=== PATIENT | male | born 1935 | race Caucasian/White ===

== ENCOUNTER 2016-07-04 22:46 | Inpatient (IN) | payer MEDICARE, OTHER ==
--- NOTE | 2016-07-04 23:22 | ED ---
General Adult HPI - General Chief complaint: Shortness of Breath Stated complaint: DERECK Time Seen by Provider: 07/04/16 22:48 Source: patient, RN notes reviewed Mode of arrival: EMS Limitations: no limitations - History of Present Illness Initial comments: Patient is a pleasant 81-year-old male presenting to the emergency department with difficulty in breathing. Patient was at [facility] in the observation unit. They did discuss case with Dr. Dominguez and decision was made to come to the emergency department. Patient was reportedly not admitted. Patient admits to having difficulty breathing for several days. Symptoms are similar to previous COPD. Computed tomography scan there had concern for mass. Patient has previously seen Dr. Trevizo. - Related Data Home Medications Medication Instructions Recorded Confirmed Budesonide/Formoterol Fumarate 2 puff INHALATION BID 07/04/16 07/04/16 [Symbicort 160-4.5 Mcg Inhaler] Ipratropium/Albuterol Sulfate 1 puff INHALATION QID 07/04/16 07/04/16 [Combivent Respimat Inhaler] [id number] 600/30MG [Mucinex 1 each PO Q12HR 07/04/16 07/04/16 Dm] Allergies Allergy/AdvReac Type Severity Reaction Status Date / Time ciprofloxacin Allergy Itching Verified 07/04/16 23:11 Review of Systems ROS Statement: Those systems with pertinent positive or pertinent negative responses have been documented in the HPI. ROS Other: All systems not noted in ROS Statement are negative. Constitutional: Denies: fever Eyes: Denies: eye pain ENT: Denies: ear pain Respiratory: Reports: cough, dyspnea Cardiovascular: Denies: chest pain Endocrine: Reports: fatigue Gastrointestinal: Denies: abdominal pain Genitourinary: Denies: urgency Skin: Denies: rash Neurological: Denies: headache Past Medical History Past Medical History: COPD History of Any Multi-Drug Resistant Organisms: None Reported Past Surgical History: No Surgical Hx Reported Smoking Status: Former smoker Past Alcohol Use History: None Reported Past Drug Use History: None Reported General Exam Limitations: no limitations General appearance: alert, in no apparent distress Head exam: Present: atraumatic Eye exam: Present: normal appearance, PERRL ENT exam: Present: normal oropharynx Neck exam: Present: normal inspection Respiratory exam: Present: wheezes Cardiovascular Exam: Present: regular rate, normal rhythm GI/Abdominal exam: Present: soft. Absent: tenderness Extremities exam: Present: normal inspection. Absent: pedal edema, calf tenderness Neurological exam: Present: alert Psychiatric exam: Present: normal affect, normal mood Skin exam: Absent: rash Course Vital Signs 07/04/16 23:05 Temperature 97.6 F Pulse Rate 66 Respiratory 20 Rate Blood Pressure 180/80 O2 Sat by Pulse 99 Oximetry Medical Decision Making - Medical Decision Making Patient updated on plan. Case was discussed with Dr. Dominguez, who will admit. He was already aware of this patient. Disposition Clinical Impression: Acute exacerbation of chronic obstructive airways disease, Lung mass Disposition: ADMITTED IP TO THIS HOSP Time of Disposition: 23:35
[2016-07-05] MEDS: methylPREDNISolone SOD SUCCI 125 MG/2 ML VIAL IV SCH ×4 (01:47→17:34)
[2016-07-05] MEDS: IPRATROPIUM-ALBUTEROL 3 ML NEB INHALATION PRN (01:50)
[2016-07-05] MEDS: IPRATROPIUM-ALBUTEROL 3 ML NEB INHALATION SCH ×3 (07:32→14:47)
[2016-07-05 07:44] LABS: Glucose,Whole Blood 119 mg/dL (75-99)
--- NOTE | 2016-07-05 11:10 | XR ---
EXAMINATION TYPE: XR chest 2V DATE OF EXAM: 07/05/2016 10:53 AM COMPARISON: NONE HISTORY: Shortness of breath TECHNIQUE: Frontal and lateral views of the chest are obtained. FINDINGS: Scattered senescent parenchymal changes noted. Hyperinflation compatible with COPD. Underlying emphys ematous changes noted. Granuloma right upper lobe. No evidence for infiltrate. No evidence for atelectasis. Heart size is not enlarged. Mediastinal structures are stable and grossly unremarkable. No evidence for hilar prominence. Degenerative changes dorsal spine. IMPRESSION: 1. No evidence for acute pulmonary disease.
[2016-07-05 11:58] LABS: Glucose,Whole Blood 128 mg/dL (75-99)
[2016-07-05] MEDS ORDERED: TEMAZEPAM 15 MG CAP PO PRN (12:19)
[2016-07-05] MEDS ORDERED: ALPRAZolam 0.25 MG TAB PO PRN (12:19)
[2016-07-05] MEDS ORDERED: IPRATROPIUM-ALBUTEROL 3 ML NEB INHALATION PRN (12:30)
[2016-07-05] MEDS: INSULIN LISPRO (humaLOG) 300 UNIT/3 ML VIAL SQ SCH ×2 (12:32→17:34)
[2016-07-05] MEDS: TAMSULOSIN 0.4 MG CAP.ER.24H PO SCH (12:41)
[2016-07-05] MEDS: guaiFENesin-DM 600/30MG 1 EACH TAB.ER.12H PO SCH (12:41)
[2016-07-05 14:31] LABS: ALT 23 U/L (21-72); AST 36 U/L (17-59); Alkaline Phosphatase 56 U/L (38-126); Anion Gap 7 mmol/L; Blood Urea Nitrogen 26 mg/dL (9-20); Calcium 9.4 mg/dL (8.4-10.2); Carbon Dioxide 28 mmol/L (22-30); Chloride 102 mmol/L (98-107); Glucose 134 mg/dL (74-99); Non-African American GFR(MDRD) 58 (>60 ml/min/1.73 sqM); Potassium 4.5 mmol/L (3.5-5.1); Sodium 137 mmol/L (137-145); Total Bilirubin 0.3 mg/dL (0.2-1.3)
--- NOTE | 2016-07-05 17:20 | CONS ---
DATE OF CONSULTATION: This is a very pleasant 81-year-old gentleman who I have seen in the past. He has a history of Gold stage III/IV COPD. He apparently was at [facility] for 3 days for shortness of breath and COPD exacerbation. He states he was not really improving there and for that reason he was shipped down from [place] to our ER where he was seen here in the ER. His complaints include chest congestion, shortness of breath, coughing wheezing. Just feels like he has a lot of mucus in his lungs. His other major issue is constipation. He apparently had a CAT scan or something which showed a possible mass. I do not know that I have any x-rays or films here. Home medications include Symbicort, DuoNeb, Mucinex. ALLERGIES: CIPROFLOXACIN. Medical history includes primarily COPD. I believe he is stage III/IV COPD. Surgical history is none. SOCIAL HISTORY: Positive for previous heavy tobacco use. Denies alcohol or illicit drug use. Family history and occupational history are noncontributory. REVIEW OF SYSTEMS: CONSTITUTIONAL: Negative. NEUROLOGICAL: Negative. HEENT: Negative. CARDIOVASCULAR: Negative. PULMONARY: Shortness breath, chest tightness, wheezing, cough, chest congestion, minimal phlegm production. GI/: Negative. RHEUMATOLOGICAL/IMMUNOLOGIC: Negative. ENDOCRINOLOGIC: Negative. DERMATOLOGIC: Negative. CURRENT VITAL SIGNS: Temperature 97.9, heart rate 78, respiratory rate 22, blood pressure 146/80, at 5 liter saturation 93%. Appears in no acute distress. HEENT examination is grossly unremarkable. Mucous membranes are moist. No oral lesions. Neck is supple. Full range of motion. No adenopathy or thyromegaly. Cardiovascular examination reveals regular rhythm and rate. S1, S2 normal. No S3, S4 or murmur. Lungs reveal diffuse bilateral expiratory wheezes. Breath sounds are diminished. Slight prolongation. No crackles. Abdomen is soft. Bowel sounds are heard. No masses or tenderness. Extremities are intact. No cyanosis, clubbing or edema. Skin is without rash. Neurological examination is nonfocal. Labs are reviewed. The only lab that I have here is a glucose of 119. There are no x-rays here. There is some note and Dr. Martinez' note said that there is apparently a lung mass. I am not aware of that. Medications are reviewed. He is on currently only on updrafts with DuoNeb and Solu-Medrol. Will add an antibiotic and also had Perforomist and Pulmicort. ASSESSMENT: 1. Chronic obstructive pulmonary disease exacerbation probably complicated by mild purulent tracheobronchitis. 2. Apparently lung mass. 3. 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 4. Previous history of heavy tobacco use. PLAN: Please see my orders. Again, the patient will likely have some antibiotic added to his regimen. Will get a chest x-ray. The patient will also have some Perforomist and Pulmicort added to his regimen. We will see if we can retrieve the CAT scan done at [place]. Additional recommendations and suggestions are forthcoming. Prognosis is guarded.
[2016-07-05 17:24] LABS: Glucose,Whole Blood 115 mg/dL (75-99)
[2016-07-05] MEDS: GABAPENTIN 400 MG CAP PO SCH (17:34)
[2016-07-05] MEDS ORDERED: methylPREDNISolone SOD SUCCI 125 MG/2 ML VIAL ONE (21:00)
[2016-07-05] MEDS ORDERED: HEPARIN SODIUM,PORCINE 5,000 UNIT/ML 1 ML VIAL ONE (21:00)
[2016-07-05] MEDS ORDERED: traZODone HCL 50 MG TAB ONE (21:00)
[2016-07-05] MEDS ORDERED: guaiFENesin-DM 600/30MG 1 EACH TAB.ER.12H PO ONE (21:00)
[2016-07-05] MEDS ORDERED: FORMOTEROL FUMARATE 20 MCG/2 ML NEBU INHALATION ONE (21:00)
[2016-07-05] MEDS ORDERED: SULFAMETHOX-TMP 800-160MG 1 EACH TAB ONE (21:00)
[2016-07-05] MEDS ORDERED: FAMOTIDINE 20 MG TAB ONE (21:00)
[2016-07-05] MEDS ORDERED: GABAPENTIN 400 MG CAP ONE (21:00)
[2016-07-05] MEDS ORDERED: IPRATROPIUM-ALBUTEROL 3 ML NEB ONE (21:00)
[2016-07-05] MEDS ORDERED: BUDESONIDE 1 MG/2 ML NEBU INHALATION ONE (21:00)
[2016-07-05] MEDS ORDERED: PROPRANOLOL 20 MG TAB ONE (21:00)
[2016-07-05 23:06] LABS: Glucose,Whole Blood 125 mg/dL (75-99)
[2016-07-06] MEDS: FORMOTEROL FUMARATE 20 MCG/2 ML NEBU INHALATION SCH ×3 (00:25→19:44)
[2016-07-06] MEDS: BUDESONIDE 1 MG/2 ML NEBU INHALATION SCH ×3 (00:25→19:44)
[2016-07-06] MEDS: IPRATROPIUM-ALBUTEROL 3 ML NEB INHALATION SCH ×5 (00:25→19:43)
[2016-07-06] MEDS: LEVOTHYROXINE 50 MCG TAB PO SCH (06:38)
[2016-07-06 07:20] LABS: Glucose,Whole Blood 124 mg/dL (75-99)
[2016-07-06 08:50] LABS: Basophils % (A) 0 %; CHCM 31.5; Eosinophils % (A) 0 %; HCT 32.1 % (39.0-53.0); HDW 2.28; HGB 10.3 gm/dL (13.0-17.5); Luc % (Auto) 1; Lymphocytes # (A) 0.4 k/uL (1.0-4.8); Lymphocytes % (A) 4 %; MCH 30.6 pg (25.0-35.0); MCHC 32.1 g/dL (31.0-37.0); MCV 95.5 fL (80.0-100.0); Mean Platelet Volume 7.3; Monocytes # (A) 0.4 k/uL (0-1.0); Monocytes % (A) 4 %; Neutrophils # (A) 9.1 k/uL (1.3-7.7); Neutrophils % (A) 91 %; RBC 3.36 m/uL (4.30-5.90); RDW 12.3 % (11.5-15.5); WBC (Perox) 10.53
[2016-07-06 09:01] LABS: Anion Gap 6 mmol/L; Blood Urea Nitrogen 29 mg/dL (9-20); Calcium 8.8 mg/dL (8.4-10.2); Carbon Dioxide 29 mmol/L (22-30); Chloride 102 mmol/L (98-107); Glucose 112 mg/dL (74-99); Non-African American GFR(MDRD) 58 (>60 ml/min/1.73 sqM); Potassium 4.3 mmol/L (3.5-5.1); Sodium 137 mmol/L (137-145)
[2016-07-06] MEDS: INSULIN LISPRO (humaLOG) 300 UNIT/3 ML VIAL SQ SCH ×5 (09:18→22:38)
[2016-07-06] MEDS: FLUoxetine HCL 20 MG CAP PO SCH (09:19)
[2016-07-06] MEDS: HEPARIN SODIUM,PORCINE 5,000 UNIT/ML 1 ML VIAL SQ SCH ×3 (09:19→20:54)
[2016-07-06] MEDS: TAMSULOSIN 0.4 MG CAP.ER.24H PO SCH (09:19)
[2016-07-06] MEDS: PROPRANOLOL 20 MG TAB PO SCH ×3 (09:19→20:52)
[2016-07-06] MEDS: PANTOPRAZOLE 40 MG TABLET PO SCH (09:19)
[2016-07-06] MEDS: FAMOTIDINE 20 MG TAB PO SCH ×3 (09:20→20:53)
[2016-07-06] MEDS: guaiFENesin-DM 600/30MG 1 EACH TAB.ER.12H PO SCH ×3 (09:20→20:52)
[2016-07-06] MEDS: SULFAMETHOX-TMP 800-160MG 1 EACH TAB PO SCH ×3 (09:21→20:54)
[2016-07-06] MEDS: GABAPENTIN 400 MG CAP PO SCH ×4 (09:22→20:54)
[2016-07-06] MEDS: methylPREDNISolone SOD SUCCI 125 MG/2 ML VIAL IV SCH ×4 (09:23→18:27)
[2016-07-06] MEDS: MULTIVITAMINS, THERA 1 EACH TAB PO SCH (11:02)
[2016-07-06 11:23] LABS: Hemoglobin A1C 5.4 % (4.2-6.1)
[2016-07-06 11:51] LABS: Glucose,Whole Blood 99 mg/dL (75-99)
[2016-07-06] MEDS ORDERED: MULTIVITAMINS, THERA 1 EACH TAB PO SCH (12:00)
[2016-07-06] MEDS: SENNOSIDES 8.6 MG TAB PO PRN (12:28)
--- NOTE | 2016-07-06 13:14 | HP ---
DATE OF ADMISSION: CHIEF COMPLAINT: Shortness of breath. HISTORY OF PRESENT ILLNESS: This 81-year-old gentleman with a past medical history of multiple medical problems including COPD, GERD, hypertension, history of back pain, chronic constipation, anxiety not otherwise specified being followed by Dr. Ng in the outpatient presented with complaints of COPD, pneumonia suspected, treated with antibiotics. The CAT scan of the chest showed possibly. The patient also complains of significant wheezing and difficulty in breathing and because of that the patient was transferred to [facility] and admitted for evaluation and treatment. No history of any fever, rigors or chills. No history of headache or loss of consciousness. PAST MEDICAL HISTORY: COPD, GERD, hypertension, hypothyroidism, history of back pain, chronic constipation, anxiety and depression. MEDICATIONS PRIOR TO ADMISSION: 1. Multivitamin 1 p.o. daily. 2. Flonase nasal spray 1 daily p.r.n. 3. Synthroid 50 mcg p.o. daily. 4. Neurontin 400 mg p.o. t.i.d. 5. Lamont 5 mg p.o. t.i.d. p.r.n. 6. Senokot 8.6 mg q.h.s. p.r.n. 7. Vitamin D3 2000 daily. 8. Trazodone 150 mg q.h.s. 9. Mucinex 1 tablet p.o. b.i.d. 10. Flomax 0.4 daily. 11. Zantac 150 mg p.o. b.i.d. 13. Synthroid 50 mcg p.o. daily. 14. Combivent 1 puff q.i.d. p.r.n. 15. DuoNeb q.i.d. 16. Neurontin 400 mg p.o. t.i.d. 17. Prozac 20 mg p.o. daily. 18. Symbicort 2 puffs b.i.d. 19. Tylenol 650 q.4 p.r.n. ALLERGIES: CIPROFLOXACIN. FAMILY HISTORY: History of cancer in the family. SOCIAL HISTORY: Previous history of smoking. No history of current smoking or alcohol intake. REVIEW OF SYSTEMS: ENT: No diminishing hearing or diminished vision. CARDIOVASCULAR: No angina or palpitations. RESPIRATORY: Mentioned earlier. GI: No nausea. : No dysuria. NERVOUS: No numbness or weakness. ALLERGY/IMMUNOLOGY: No asthma or hayfever. HEMATOLOGY/ONCOLOGY: Negative. ENDOCRINE: No history of diabetes or hypothyroidism. SKIN: Negative. CONSTITUTIONAL: As mentioned earlier. PHYSICAL EXAMINATION: GENERAL: The patient is alert and oriented times three. VITAL SIGNS: Pulse is 84, blood pressure 140/82, respirations 20, temperature 97.1, pulse ox 97% on 5 liters. HEENT: Conjunctivae normal. Oral mucosa moist. Accessory muscles of respiration active. The patient is significantly short of breath at rest. NECK: No lymph node enlarged or thyroid enlargement. HEART: S1 and S2, muffled. Ejection systolic murmur. RESPIRATORY: Breath sounds diminished at the bases. Scattered rhonchi and expiratory wheezing and crackles. ABDOMEN: Soft, no tenderness. EXTREMITIES: Legs no edema, no swelling. NERVOUS: Higher functions as mentioned. Moves all four limbs No focal deficits. LABS: WBC not available. Sodium 137 and glucose 128. ASSESSMENT: 1. Chronic obstructive pulmonary disease acute exacerbation with acute tracheobronchitis and bronchopneumonia with acute hypoxic respiratory failure present on admission. 2. Rule out mass lesion. 3. Increased random blood sugar. 4. History of chronic obstructive pulmonary disease. 5. History of gastroesophageal reflux disease. 6. Hypertension. 7. Hypothyroidism. 8. Back pain. 9. Degenerative joint disease. 10. History of chronic constipation. 11. History of urinary tract infection. 12. History of anxiety and depression, not otherwise specified. 13. Remote history of nicotine dependence. 14. Full code. Recommendations and discussion: In this 81-year-old gentleman who presented with multiple complex medical issues, we will monitor the patient closely. Continue the current medications, optimize the bronchodilator treatment and antibiotics. Otherwise steroids, monitor blood sugars closely, DVT prophylaxis. Guarded prognosis. Further recommendations to follow. See orders for further details. NIECY NG MD [facility]
[2016-07-06] MEDS ORDERED: FUROSEMIDE 10 MG/ML 2 ML VIAL IV ONE (16:00)
[2016-07-06] MEDS: CHOLECALCIFEROL 1,000 UNIT TAB PO SCH (17:07)
[2016-07-06] MEDS: DOCUSATE 100 MG CAP PO SCH (17:08)
[2016-07-06] MEDS: ALPRAZolam 0.25 MG TAB PO SCH ×2 (17:12→20:58)
[2016-07-06 17:21] LABS: Glucose,Whole Blood 126 mg/dL (75-99)
[2016-07-06] MEDS: traZODone HCL 50 MG TAB PO SCH ×2 (18:27→20:53)
[2016-07-06 22:14] LABS: Glucose,Whole Blood 143 mg/dL (75-99)
--- NOTE | 2016-07-06 22:59 | PN ---
This is a pleasant 81-year-old gentleman in the past. He has a history of stage III/IV COPD. He apparently was at [facility] for 3 days for shortness of breath and COPD exacerbation. He was transferred over here. Feeling a bit better today. Still with shortness of breath. Coughing, chest congestion. Coughing up some phlegm. His was concerned about his bowels. There is also concerned about his anxiety. He has a history of chronic obstructive pulmonary disease. Other than that, really has no other major medical problems. Current vital signs include a temperature which is 97.4, heart rate 78, respiratory rate 18, blood pressure 141/68, mean 92, 5 liters saturation 96%. Appears in no acute distress. HEENT examination is grossly unremarkable. Mucous membranes are moist. No oral lesions. Neck is supple. Full range of motion. No adenopathy or thyromegaly. Neck veins are flat. Cardiovascular examination reveals regular rhythm and rate. S1, S2 normal. No S3, S4 or murmur. Lungs reveal coarse inspiratory and expiratory rhonchi. Breath sounds are diminished. There is prolongation. The patient wheezes on forced maneuver. ABDOMEN: Soft. Bowel sounds are heard. No masses or tenderness. EXTREMITIES: Intact. No edema. Skin is without rash. NEUROLOGICAL: Nonfocal. Labs are reviewed. White count 10, hemoglobin 10.3, hematocrit 32.1, platelet count 190,000. Sodium, potassium and chloride, and CO2 normal. BUN and creatinine were 29 and 1.21. Microbiology is negative. A chest x-ray done on 07/05 shows no acute pulmonary disease. There are changes of COPD. Medications were adjusted yesterday. ASSESSMENT: 1. Chronic obstructive pulmonary disease exacerbation complicated by purulent tracheobronchitis. 2. 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 3. Previous history of heavy tobacco use. 4. Anxiety. 5. Constipation. 6. No evidence of lung mass based on the current chest x-ray. PLAN: Will add some Xanax to his regimen. He will continue on the Perforomist, Pulmicort and Duoneb. He will continue on Solu-Medrol and antibiotics. No additional recommendations are made.
[2016-07-06] MEDS: IPRATROPIUM-ALBUTEROL 3 ML NEB INHALATION PRN (23:19)
[2016-07-07] MEDS: methylPREDNISolone SOD SUCCI 125 MG/2 ML VIAL IV SCH ×4 (00:06→17:46)
[2016-07-07] MEDS: LEVOTHYROXINE 50 MCG TAB PO SCH (06:45)
[2016-07-07 07:25] LABS: Glucose,Whole Blood 126 mg/dL (75-99)
[2016-07-07] MEDS: INSULIN LISPRO (humaLOG) 300 UNIT/3 ML VIAL SQ SCH ×4 (07:32→22:11)
[2016-07-07] MEDS: FAMOTIDINE 20 MG TAB PO SCH (07:59)
[2016-07-07] MEDS: guaiFENesin-DM 600/30MG 1 EACH TAB.ER.12H PO SCH ×2 (07:59→22:10)
[2016-07-07] MEDS: TAMSULOSIN 0.4 MG CAP.ER.24H PO SCH (07:59)
[2016-07-07] MEDS: ALPRAZolam 0.25 MG TAB PO SCH ×4 (07:59→22:17)
[2016-07-07] MEDS: PROPRANOLOL 20 MG TAB PO SCH ×2 (07:59→22:12)
[2016-07-07] MEDS: SULFAMETHOX-TMP 800-160MG 1 EACH TAB PO SCH (07:59)
[2016-07-07] MEDS: GABAPENTIN 400 MG CAP PO SCH ×3 (08:00→22:13)
[2016-07-07] MEDS: HEPARIN SODIUM,PORCINE 5,000 UNIT/ML 1 ML VIAL SQ SCH ×2 (08:00→22:11)
[2016-07-07] MEDS: DOCUSATE 100 MG CAP PO SCH (08:00)
[2016-07-07] MEDS: PANTOPRAZOLE 40 MG TABLET PO SCH (08:00)
[2016-07-07] MEDS: FLUoxetine HCL 20 MG CAP PO SCH (08:00)
[2016-07-07] MEDS: IPRATROPIUM-ALBUTEROL 3 ML NEB INHALATION SCH ×4 (09:25→20:10)
[2016-07-07] MEDS: BUDESONIDE 1 MG/2 ML NEBU INHALATION SCH ×2 (09:25→20:10)
[2016-07-07] MEDS: FORMOTEROL FUMARATE 20 MCG/2 ML NEBU INHALATION SCH ×2 (09:25→20:10)
[2016-07-07 09:35] LABS: Basophils % (A) 0 %; CH 30.1; CHCM 31.1; Eosinophils % (A) 0 %; HCT 35.7 % (39.0-53.0); HDW 2.28; HGB 11.1 gm/dL (13.0-17.5); Hypochromasia Slight; Luc # (Auto) 0.04; Luc % (Auto) 0; Lymphocytes # (A) 0.4 k/uL (1.0-4.8); Lymphocytes % (A) 4 %; MCH 30.2 pg (25.0-35.0); MCV 97.4 fL (80.0-100.0); Mean Platelet Volume 7.3; Monocytes # (A) 0.3 k/uL (0-1.0); Monocytes % (A) 3 %; Neutrophils # (A) 8.6 k/uL (1.3-7.7); Neutrophils % (A) 92 %; RBC 3.67 m/uL (4.30-5.90); RDW 12.4 % (11.5-15.5); WBC 9.3 k/uL (3.8-10.6); WBC (Perox) 9.64
[2016-07-07] MEDS: SENNOSIDES 8.6 MG TAB PO PRN (09:50)
[2016-07-07] MEDS: CHOLECALCIFEROL 1,000 UNIT TAB PO SCH (09:50)
[2016-07-07 10:02] LABS: Potassium 4.2 mmol/L (3.5-5.1)
[2016-07-07 12:02] LABS: Glucose,Whole Blood 127 mg/dL (75-99)
--- NOTE | 2016-07-07 12:27 | PN ---
DATE OF SERVICE: 07/06/2016 This 81-year-old gentleman who was admitted with COPD acute exacerbation as well as acute hypoxic respiratory failure, also suspected of mass lesion elsewhere. No chest pain or palpitations. No fever. On exam, alert, oriented x3. Pulse 74, blood pressure 140/60, respirations 18, temperature 97.6, pulse ox 97% on 5 L. HEENT: Conjunctivae normal. NECK: No JVD. CARDIOVASCULAR: S1 and S2 muffled. LUNGS: Breath sounds diminished at the bases. Few scattered rhonchi and crackles. ABDOMEN: Soft. EXTREMITIES: Legs nontender. EXTREMITIES: No focal deficits. LABS: WBC 10, hemoglobin 10.3, glucose 112. ASSESSMENT: 1. Chronic obstructive pulmonary disease acute exacerbation with acute purulent tracheobronchitis and bronchopneumonia with acute hypoxic respiratory failure, present on admission. 2. Rule out mass lesion and malignancy. 3. Increased random blood sugar. 4. History of chronic obstructive pulmonary disease. 5. History of gastroesophageal reflux disease. 6. Hypertension, essential. 7. History of hypothyroidism. 8. History of back pain, degenerative joint disease. 9. History of chronic constipation. 10. History of urinary tract infections. 11. History of anxiety/depression, not otherwise specified. 12. Remote history of nicotine dependence. 13. FULL CODE. RECOMMENDATIONS: Recommend to continue current medications, continue symptomatic treatment. Otherwise bronchodilators, steroids, antibiotics. Also recommend a repeat CT scan for evaluation. Closely follow with pulmonary. Further recommendations to follow. The patient is still extremely short of breath.
[2016-07-07] MEDS: MULTIVITAMINS, THERA 1 EACH TAB PO SCH (14:02)
--- NOTE | 2016-07-07 17:06 | P.PN ---
Subjective 81-year-old male patient with advanced COPD was coming in for an acute COPD exacerbation. The patient had undergone a CAT scan of the chest at [facility] and it shows a masslike consolidation in the right midlung area is probably an area of infiltrate than a true tumor. In any rate, the patient advanced lung disease and he will not be a candidate for any further diagnostic or therapeutic measures even if diagnosis of cancer was established. The patient is in for an acute COPD exacerbation. He is a congested cough and he is unable to bring up much of sputum. No chills. No fever. He reports only minimal amount of improvement over the past 24 hours and is less short of breath compared to yesterday. He is an ex-smoker and he quit smoking approximately 4 years ago. Objective - Vital Signs Vital signs: Vital Signs Temp 97.4 F L 07/07/16 15:00 Pulse 92 07/07/16 16:38 Resp 16 07/07/16 16:00 BP 132/69 07/07/16 15:00 Pulse Ox 97 07/07/16 15:00 Intake & Output 07/06/16 07/07/16 07/07/16 18:59 06:59 18:59 Intake Total 440 600 Output Total 1000 1000 Balance -560 600 -1000 Weight 76.204 kg 76.204 kg Intake: Oral 440 600 Output: Urine 1000 1000 Other: Voiding Method Urinal Urinal # Voids 1,000 1 1 # Bowel Movements 0 0 0 - Exam The patient appeared well nourished and normally developed. Vital signs as documented. Head exam is unremarkable. No scleral icterus or corneal arcus noted. Neck is without jugular venous distension, thyromegaly, or carotid bruits. Carotid upstrokes are brisk bilaterally. Lung sounds are markedly diminished in the lungs throughout and the patient is prolongation of expiratory phase of breathing and scattered rhonchi heard throughout the lung stafford.. Cardiac exam reveals the PMI to be normally sized and situated. Rhythm is regular. First and second heart sounds normal. No murmurs, rubs or gallops. Abdominal exam reveals normal bowel sounds, no masses, no organomegaly and no aortic enlargement. Extremities are nonedematous and both femoral and pedal pulses are normal. - Labs CBC & Chem 7: 07/07/16 08:40 07/07/16 08:40 Labs: Abnormal Lab Results - Last 24 Hours (Table) 07/06/16 07/06/16 07/07/16 Range/Units :17 22:00 07:22 RBC (4.30-5.90) m/uL Hgb (13.0-17.5) gm/dL Hct (39.0-53.0) % Neutrophils # (1.3-7.7) k/uL Lymphocytes # (1.0-4.8) k/uL Carbon Dioxide (22-30) mmol/L BUN (9-20) mg/dL Creatinine (0.66-1.25) mg/dL Glucose (74-99) mg/dL POC Glucose (mg/dL) 126 H 143 H 126 H (75-99) mg/dL 07/07/16 07/07/16 07/07/16 Range/Units 08:40 08:40 11:51 RBC 3.67 L (4.30-5.90) m/uL Hgb 11.1 L (13.0-17.5) gm/dL Hct 35.7 L (39.0-53.0) % Neutrophils # 8.6 H (1.3-7.7) k/uL Lymphocytes # 0.4 L (1.0-4.8) k/uL Carbon Dioxide 32 H (22-30) mmol/L BUN 36 H (9-20) mg/dL Creatinine 1.42 H (0.66-1.25) mg/dL Glucose 116 H (74-99) mg/dL POC Glucose (mg/dL) 127 H (75-99) mg/dL Assessment and Plan Plan: Assessment 1 acute COPD exacerbation, with secondary shortness of breath 2 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 5 generalized anxiety disorder 6 renal failure, likely Bactrim induced with a possible chronic renal failure Plan I reassured the patient regarding the CAT scan findings. No need for any biopsy at this point. Continue the DuoNeb restrooms [id number]. Continue the performance and the Pulmicort. Continued IV Solu-Medrol. Stop the Bactrim and switch this patient to Rocephin and Zithromax knowing that the Bactrim has caused some mild degree of renal insufficiency and the creatinine is up to 1.4. We'll continue to follow
[2016-07-07 17:09] LABS: Glucose,Whole Blood 136 mg/dL (75-99)
[2016-07-07] MEDS: AZITHROMYCIN 500 MG TAB PO SCH (17:44)
--- NOTE | 2016-07-07 18:10 | P.PN ---
Subjective Date of service 07/07/2016. Progress note being dictated for Dr. Dominguez. Interval history: This is an 81-year-old gentleman admitted with acute COPD exacerbation, respiratory failure, bronchopneumonia, suspected right mid lung mass lesion per [facility] CT scan and multiple other medical issues. Maintained on nebulized bronchodilators, antibiotics and steroids with slow improvement in breathing. Nonproductive cough. Complains of shortness of breath with minimal exertion. Mildly worsening renal function. Antibiotics changed to Zithromax and Rocephin. Evaluated by pulmonary with recommendations noted. Denies chest pain, or palpitations. Review of systems: HEENT: Denies headache or focal deficits. Denies any dizziness or lightheadedness. Complains of fatigue Respiratory: Complains of increased shortness of breath with minimal exertion Cardiac: Denies any chest pain, palpitations. GI: Denies any nausea, vomiting, or diarrhea. Denies any abdominal tenderness. : Denies any dysuria. Psychiatry: Denies any anxiety or depression. Active Medications Acetaminophen (Tylenol Tab) 650 mg PO Q4H PRN PRN Reason: Fever and/ or Mild Pain Hydrocodone Bitart/Acetaminophen ([place] 5-325) 1 each PO TID PRN PRN Reason: Moderate Pain Control Albuterol/Ipratropium (Duoneb 0.5 Mg-3 Mg/3 Ml Soln) 3 ml INHALATION RT-QID [facility] Last Admin: 07/07/16 16:22 Dose: 3 ml Albuterol/Ipratropium (Duoneb 0.5 Mg-3 Mg/3 Ml Soln) 3 ml INHALATION RT-Q4H PRN PRN Reason: Shortness Of Breath Or Wheezing Last Admin: 07/06/16 23:19 Dose: 3 ml Albuterol/Ipratropium (Duoneb 0.5 Mg-3 Mg/3 Ml Soln) 3 ml INHALATION RT-QID PRN PRN Reason: SHORTNESS OF BREATH Alprazolam (Xanax) 0.25 mg PO QID [facility] Last Admin: 07/07/16 17:49 Dose: 0.25 mg Azithromycin (Zithromax) 500 mg PO DAILY [facility] Last Admin: 07/07/16 17:44 Dose: 500 mg Budesonide (Pulmicort) 1 mg INHALATION RT-BID [facility] Last Admin: 07/07/16 09:25 Dose: 1 mg Cholecalciferol (Vitamin D3) 2,000 unit PO DAILY [facility] Last Admin: 07/07/16 09:50 Dose: 2,000 unit Docusate Sodium (Colace) 100 mg PO DAILY@1600 [facility] Last Admin: 07/07/16 08:00 Dose: 100 mg Famotidine (Pepcid) 20 mg PO DAILY [facility] Fluoxetine HCl (Prozac) 20 mg PO DAILY [facility] Last Admin: 07/07/16 08:00 Dose: 20 mg Fluticasone Propionate (Flonase Nasal [place]) 1 spray INTRANASAL DAILY PRN PRN Reason: Congestion Formoterol Fumarate (Perforomist) 20 mcg INHALATION RT-BID [facility] Last Admin: 07/07/16 09:25 Dose: 20 mcg Gabapentin (Neurontin) 400 mg PO TID [facility] Last Admin: 07/07/16 17:46 Dose: 400 mg Guaifenesin/Dextromethorphan (Mucinex Dm) 1 each PO Q12HR [facility] Last Admin: 07/07/16 07:59 Dose: 1 each Heparin Sodium (Porcine) (Heparin) 5,000 unit SQ Q12HR [facility] Last Admin: 07/07/16 08:00 Dose: 5,000 unit Ceftriaxone Sodium 1,000 mg/ (Sodium Chloride) 50 mls @ 100 mls/hr IVPB Q24HR [facility] Last Admin: 07/07/16 17:44 Dose: 100 mls/hr Insulin Human Lispro (Humalog) 0 unit SQ ACHS [facility] PRN Reason: Protocol Last Admin: 07/07/16 17:44 Dose: 1 unit Levothyroxine Sodium (Synthroid) 50 mcg PO DAILY@0630 [facility] Last Admin: 07/07/16 06:45 Dose: 50 mcg Methylprednisolone Sodium Succinate (Solu-Medrol) 60 mg IV Q6HR [facility] Last Admin: 07/07/16 17:46 Dose: 60 mg Multivitamins (Theragran) 1 each PO DAILY@1200 [facility] Last Admin: 07/07/16 14:02 Dose: 1 each Propranolol HCl (Inderal) 20 mg PO BID [facility] Last Admin: 07/07/16 07:59 Dose: 20 mg Senna (Senokot) 8.6 mg PO HS PRN PRN Reason: Constipation Last Admin: 07/07/16 09:50 Dose: 8.6 mg Sodium Chloride (Saline Flush) 10 ml IV BID [facility] Last Admin: 07/07/16 09:51 Dose: 10 ml Tamsulosin HCl (Flomax) 0.4 mg PO DAILY [facility] Last Admin: 07/07/16 07:59 Dose: 0.4 mg Temazepam (Restoril) 15 mg PO HS PRN PRN Reason: Insomnia Trazodone HCl (Desyrel) 150 mg PO HS [facility] Last Admin: 07/06/16 20:53 Dose: 150 mg Objective - Vital Signs Vital signs: Vital Signs Temp 97.4 F L 07/07/16 15:00 Pulse 92 07/07/16 16:38 Resp 16 07/07/16 16:00 BP 132/69 07/07/16 15:00 Pulse Ox 97 07/07/16 15:00 Intake & Output 07/06/16 07/07/16 07/07/16 18:59 06:59 18:59 Intake Total 440 600 Output Total 1000 1000 Balance -560 600 -1000 Weight 76.204 kg 76.204 kg Intake: Oral 440 600 Output: Urine 1000 1000 Other: Voiding Method Urinal Urinal # Voids 1,000 1 1 # Bowel Movements 0 0 0 - Exam PHYSICAL EXAM: VITAL SIGNS: As above GENERAL: [Sitting up in bed,] HEENT: [Pupils equal conjunctiva normal. No conjunctival pallor] NECK: [Supple, no JVD] RESPIRATORY EFFORT:[ Increased] LUNGS: [Diminished throughout with scattered rhonchi, no wheezing, no crackles] CARDIOVASCULAR[ regular S1 and S2, no murmurs rubs or gallops, trace edema] GI: [Abdomen soft, nontender, positive bowel sounds.] PSYCH: [Alert and oriented -3, mood and affect normal.] NEURO: No focal deficits - Labs CBC & Chem 7: 07/07/16 08:40 07/07/16 08:40 Labs: Abnormal Lab Results - Last 24 Hours (Table) 07/06/16 07/07/16 07/07/16 Range/Units 22:00 07:22 08:40 RBC 3.67 L (4.30-5.90) m/uL Hgb 11.1 L (13.0-17.5) gm/dL Hct 35.7 L (39.0-53.0) % Neutrophils # 8.6 H (1.3-7.7) k/uL Lymphocytes # 0.4 L (1.0-4.8) k/uL Carbon Dioxide (22-30) mmol/L BUN (9-20) mg/dL Creatinine (0.66-1.25) mg/dL Glucose (74-99) mg/dL POC Glucose (mg/dL) 143 H 126 H (75-99) mg/dL 07/07/16 07/07/16 07/07/16 Range/Units 08:40 11:51 17:05 RBC (4.30-5.90) m/uL Hgb (13.0-17.5) gm/dL Hct (39.0-53.0) % Neutrophils # (1.3-7.7) k/uL Lymphocytes # (1.0-4.8) k/uL Carbon Dioxide 32 H (22-30) mmol/L BUN 36 H (9-20) mg/dL Creatinine 1.42 H (0.66-1.25) mg/dL Glucose 116 H (74-99) mg/dL POC Glucose (mg/dL) 127 H 136 H (75-99) mg/dL Assessment and Plan Plan: 1. [ Acute COPD exacerbation with acute purulent tracheobronchitis, bronchopneumonia with acute on chronic hypoxic respiratory failure, present on admission]. 2. [Suspected right mid lung mass lesion per [facility] CT scan, possible malignancy. 3. [ Gastroesophageal reflux disease]. 4. [ Essential hypertension]. 5. [ Hypothyroidism]. 6. [ Degenerative joint disease with chronic back pain]. 7. [ Chronic constipation]. 8. History of anxiety, depression, not otherwise specified 9. Remote history of nicotine dependence 10. Acute renal failure, possibly antibiotic induced. Plan: Continue on current medication regime, nebulized bronchodilators, antibiotics, steroids, monitoring and symptomatic treatment. Receiving nebulized treatments [id number] as per pulmonary. Close monitoring of renal function with repeat labs ordered for a.m. Further recommendations to follow. The impression and plan of care has been dictated as directed. : I performed a H&P examination of this patient and discussed the same with the dictator. I agree with the dictator's note. Any additional findings/opinions/ etc. will be noted.
[2016-07-07 21:17] LABS: Glucose,Whole Blood 128 mg/dL (75-99)
[2016-07-07] MEDS: traZODone HCL 50 MG TAB PO SCH (22:12)
[2016-07-08] MEDS: methylPREDNISolone SOD SUCCI 125 MG/2 ML VIAL IV SCH ×4 (00:20→18:05)
[2016-07-08] MEDS: LEVOTHYROXINE 50 MCG TAB PO SCH (07:11)
[2016-07-08 07:42] LABS: Glucose,Whole Blood 121 mg/dL (75-99)
--- NOTE | 2016-07-08 07:53 | PN ---
DATE OF SERVICE: 07/07/2016 This 81-year-old gentleman who was admitted with chronic obstructive pulmonary disease acute exacerbation, also suspected to have mass lesion. CAT scan has been ordered. Seen and evaluated the patient along with the nurse practitioner. Please refer to the nurse practitioner notes and impression documented for further information. Continue the medications including bronchodilators and steroids. Guarded prognosis. Further recommendations to follow.
[2016-07-08] MEDS: INSULIN LISPRO (humaLOG) 300 UNIT/3 ML VIAL SQ SCH ×4 (08:06→21:47)
[2016-07-08] MEDS: IPRATROPIUM-ALBUTEROL 3 ML NEB INHALATION SCH ×4 (08:19→19:38)
[2016-07-08] MEDS: FORMOTEROL FUMARATE 20 MCG/2 ML NEBU INHALATION SCH (08:19)
[2016-07-08] MEDS: BUDESONIDE 1 MG/2 ML NEBU INHALATION SCH (08:19)
[2016-07-08] MEDS: FLUoxetine HCL 20 MG CAP PO SCH (09:29)
[2016-07-08] MEDS: guaiFENesin-DM 600/30MG 1 EACH TAB.ER.12H PO SCH (09:29)
[2016-07-08] MEDS: HEPARIN SODIUM,PORCINE 5,000 UNIT/ML 1 ML VIAL SQ SCH ×2 (09:29→21:46)
[2016-07-08] MEDS: AZITHROMYCIN 500 MG TAB PO SCH (09:29)
[2016-07-08] MEDS: GABAPENTIN 400 MG CAP PO SCH ×3 (09:29→21:46)
[2016-07-08] MEDS: PROPRANOLOL 20 MG TAB PO SCH ×2 (09:30→21:46)
[2016-07-08] MEDS: CHOLECALCIFEROL 1,000 UNIT TAB PO SCH (09:30)
[2016-07-08] MEDS: DOCUSATE 100 MG CAP PO SCH (09:30)
[2016-07-08] MEDS: ALPRAZolam 0.25 MG TAB PO SCH ×4 (09:31→21:46)
[2016-07-08] MEDS: FAMOTIDINE 20 MG TAB PO SCH (09:47)
[2016-07-08] MEDS: TAMSULOSIN 0.4 MG CAP.ER.24H PO SCH (09:47)
[2016-07-08] MEDS: HYDROcodone/APAP 5-325MG 1 EACH TAB PO PRN (09:48)
[2016-07-08 10:21] LABS: Basophils % (A) 0 %; CH 30.1; CHCM 30.8; Eosinophils % (A) 0 %; HCT 34.2 % (39.0-53.0); HDW 2.29; HGB 10.6 gm/dL (13.0-17.5); Hypochromasia Slight; Luc # (Auto) 0.03; Luc % (Auto) 0; Lymphocytes # (A) 0.4 k/uL (1.0-4.8); Lymphocytes % (A) 3 %; MCH 30.4 pg (25.0-35.0); MCV 97.9 fL (80.0-100.0); Mean Platelet Volume 7.4; Monocytes # (A) 0.3 k/uL (0-1.0); Monocytes % (A) 3 %; Neutrophils # (A) 9.6 k/uL (1.3-7.7); Neutrophils % (A) 94 %; RDW 12.2 % (11.5-15.5); WBC 10.2 k/uL (3.8-10.6); WBC (Perox) 10.68
[2016-07-08 10:56] LABS: Anion Gap 8 mmol/L; Blood Urea Nitrogen 36 mg/dL (9-20); Calcium 8.7 mg/dL (8.4-10.2); Carbon Dioxide 29 mmol/L (22-30); Chloride 101 mmol/L (98-107); Glucose 160 mg/dL (74-99); Non-African American GFR(MDRD) 51 (>60 ml/min/1.73 sqM); Potassium 4.2 mmol/L (3.5-5.1); Sodium 138 mmol/L (137-145)
--- NOTE | 2016-07-08 12:23 | P.PN ---
Subjective Principal diagnosis: COPD exacerbation 81-year-old male patient with advanced COPD was coming in for an acute COPD exacerbation. The patient had undergone a CAT scan of the chest at [facility] and it shows a masslike consolidation in the right midlung area is probably an area of infiltrate than a true tumor. In any rate, the patient advanced lung disease and he will not be a candidate for any further diagnostic or therapeutic measures even if diagnosis of cancer was established. The patient is in for an acute COPD exacerbation. He is a congested cough and he is unable to bring up much of sputum. No chills. No fever. He reports only minimal amount of improvement over the past 24 hours and is less short of breath compared to yesterday. He is an ex-smoker and he quit smoking approximately 4 years ago. The patient is seen again today 07/08/2016 in follow-up on the regular medical floor. He is still slow to progress. Not significantly better today as compared to yesterday but states he is better overall. He is able to carry on more sentences without significant shortness of breath. He is still requiring 5 L/m per nasal cannula to maintain O2 saturations in the 90s. He specifically afebrile. He is still quite bronchospastic and wheezy. Objective - Vital Signs Vital signs: Vital Signs Temp 97.2 F L 07/08/16 07:00 Pulse 92 07/08/16 11:50 Resp 20 07/08/16 07:00 BP 126/59 07/08/16 07:00 Pulse Ox 98 07/07/16 23:00 Intake & Output 07/07/16 07/08/16 07/08/16 18:59 06:59 18:59 Intake Total 600 Output Total 1000 Balance -1000 600 Weight 76.204 kg Intake: Oral 600 Output: Urine 1000 Other: Voiding Method Urinal # Voids 1 1 # Bowel Movements 0 - Exam The patient appeared well nourished and normally developed. Vital signs as documented. Head exam is unremarkable. No scleral icterus or corneal arcus noted. Neck is without jugular venous distension, thyromegaly, or carotid bruits. Carotid upstrokes are brisk bilaterally. Lung sounds are markedly diminished in the lungs throughout and the patient is prolongation of expiratory phase of breathing and scattered rhonchi heard throughout the lung stafford.. Cardiac exam reveals the PMI to be normally sized and situated. Rhythm is regular. First and second heart sounds normal. No murmurs, rubs or gallops. Abdominal exam reveals normal bowel sounds, no masses, no organomegaly and no aortic enlargement. Extremities are nonedematous and both femoral and pedal pulses are normal. - Labs CBC & Chem 7: 07/08/16 09:49 07/08/16 09:49 Labs: Abnormal Lab Results - Last 24 Hours (Table) 07/07/16 07/07/16 07/08/16 Range/Units 17:05 20:54 07:37 RBC (4.30-5.90) m/uL Hgb (13.0-17.5) gm/dL Hct (39.0-53.0) % Neutrophils # (1.3-7.7) k/uL Lymphocytes # (1.0-4.8) k/uL BUN (9-20) mg/dL Creatinine (0.66-1.25) mg/dL Glucose (74-99) mg/dL POC Glucose (mg/dL) 136 H 128 H 121 H (75-99) mg/dL 07/08/16 07/08/16 Range/Units 09:49 09:49 RBC 3.50 L (4.30-5.90) m/uL Hgb 10.6 L (13.0-17.5) gm/dL Hct 34.2 L (39.0-53.0) % Neutrophils # 9.6 H (1.3-7.7) k/uL Lymphocytes # 0.4 L (1.0-4.8) k/uL BUN 36 H (9-20) mg/dL Creatinine 1.35 H (0.66-1.25) mg/dL Glucose 160 H (74-99) mg/dL POC Glucose (mg/dL) (75-99) mg/dL Assessment and Plan Plan: Assessment 1 acute COPD exacerbation, with secondary shortness of breath 2 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 5 generalized anxiety disorder 6 renal failure, likely Bactrim induced with a possible chronic renal failure Plan: The patient was seen and evaluated by Dr. Vizcarra. We'll continue with his current medications. He is quite adamant that Combivent works better than our Duo-neb inhalations. We'll try to get that from the pharmacy. We'll also continue with Mucinex twice a day.b remains on Rocephin and azithromycin. We' ll increase his activity as tolerated. We'll continue to follow.
[2016-07-08] MEDS ORDERED: BISACODYL 10 MG SUPP RECTAL PRN (12:33)
[2016-07-08 12:38] LABS: Glucose,Whole Blood 136 mg/dL (75-99)
[2016-07-08] MEDS ORDERED: DOCUSATE 100 MG CAP PO ONE (12:45)
[2016-07-08] MEDS: MULTIVITAMINS, THERA 1 EACH TAB PO SCH (13:31)
[2016-07-08] MEDS: ACETAMINOPHEN TAB 325 MG TAB PO PRN (13:41)
--- NOTE | 2016-07-08 15:15 | CT ---
EXAMINATION TYPE: CT chest wo con DATE OF EXAM: 07/08/2016 2:54 PM COMPARISON: NONE HISTORY: COPD, difficulty breathing. CT DLP: 379.[address] of the chest was performed with lung and mediastinal window settings submitted. The la ck of contrast limits evaluation of the vascular, mediastinal and parenchymal structures including th e upper abdomen. LUNGS: Moderate emphysematous changes are seen bilaterally. There is perihilar postinflammatory levine es noted with hilar retraction seen. Within the right perihilar region however there is more of a nod ular component and underlying lesion is difficult to exclude measuring 2 cm. Again I believe this is most likely postinflammatory in nature however this could be confirmed with PET/CT. There is evidence of right apical calcified granuloma. MEDIASTINUM/BYRON: Calcified hilar mediastinal lymph nodes identified. Thoracic aorta is of normal ca liber with limited evaluation given lack of contrast. The heart is not enlarged. No evidence for me diastinal mass. No lymph nodes greater than 1cm. UPPER ABDOMEN: 5.5 cm cyst right kidney. OTHER: No significant other abnormality. IMPRESSION: 1. Moderate emphysematous changes noted bilaterally with perihilar postinflammatory change and hilar retraction seen. More nodular component identified about the right hilum is likely postinflammatory in nature however I cannot exclude underlying malignancy. Consider PET/CT for further evaluation. Rem ote prior outside studies would also be of value if available.
--- NOTE | 2016-07-08 17:25 | P.PN ---
Subjective Date of service 07/08/2016. Progress note being dictated for Dr. Dominguez. Interval history: This is an 81-year-old gentleman admitted with acute COPD exacerbation, respiratory failure, bronchopneumonia, suspected right mid lung mass lesion per [facility] CT and multiple other medical issues. Follow- up computed tomography scan reporting moderate emphysematous changes bilaterally with parahilar post inflammatory change, right hilum with more nodular component, possibly post inflammatory. Breathing slowly improving on nebulized bronchodilators, antibiotics and steroids. Persistent Nonproductive cough. Antibiotics changed to Zithromax and Rocephin. Creatinine 1.35. Stood at the bedside with physical therapy. Afebrile. Review of systems: HEENT: Denies headache or focal deficits. Denies any dizziness or lightheadedness. Complains of fatigue, generalized weakness. Respiratory: Complains of increased shortness of breath with minimal exertion. Cardiac: Denies any chest pain, palpitations. GI: Denies any nausea, vomiting, or diarrhea. Denies any abdominal tenderness. : Denies any dysuria. Psychiatry: Denies any anxiety or depression. Active Medications Generic Name Dose Route Start Last Admin Trade Name Freq PRN Reason Stop Dose Admin Acetaminophen 650 mg 07/05/16 12:13 07/08/16 13:41 Tylenol Tab PO 650 mg Q4H PRN Administration Fever and/ or Mild Pain Hydrocodone Bitart/Acetaminophen 1 each 07/05/16 12:13 07/08/16 09:48 [place] 5-325 PO 1 each TID PRN Administration Moderate Pain Control Albuterol/Ipratropium 3 ml 07/05/16 08:00 07/08/16 15:45 Duoneb 0.5 Mg-3 Mg/3 Ml Soln INHALATION 3 ml RT-QID [facility] Administration Albuterol/Ipratropium 3 ml 07/04/16 23:23 07/06/16 23:19 Duoneb 0.5 Mg-3 Mg/3 Ml Soln INHALATION 3 ml RT-Q4H PRN Administration Shortness Of Breath Or Wheezing Albuterol/Ipratropium 3 ml 07/05/16 12:30 Duoneb 0.5 Mg-3 Mg/3 Ml Soln INHALATION RT-QID PRN SHORTNESS OF BREATH Alprazolam 0.25 mg 07/06/16 18:00 07/08/16 13:41 Xanax PO 0.25 mg QID [facility] Administration Azithromycin 500 mg 07/07/16 17:15 07/08/16 09:29 Zithromax PO 500 mg DAILY [facility] Administration Bisacodyl 10 mg 07/08/16 12:33 07/08/16 13:37 Dulcolax RECTAL 10 mg DAILY PRN Administration Constipation Budesonide/Formoterol Fumarate 2 puff 07/08/16 20:00 Symbicort 160-4.5 Mcg Inhaler INHALATION RT-BID [facility] Cholecalciferol 2,000 unit 07/06/16 09:00 07/08/16 09:30 Vitamin D3 PO 2,000 unit DAILY [facility] Administration Docusate Sodium 200 mg 07/09/16 09:00 Colace PO DAILY [facility] Famotidine 20 mg 07/08/16 09:00 07/08/16 09:47 Pepcid PO 20 mg DAILY [facility] Administration Fluoxetine HCl 20 mg 07/06/16 09:00 07/08/16 09:29 Prozac PO 20 mg DAILY [facility] Administration Fluticasone Propionate 1 spray 07/05/16 12:13 Flonase Nasal [place] INTRANASAL DAILY PRN Congestion Gabapentin 400 mg 07/05/16 16:00 07/08/16 15:38 Neurontin PO 400 mg TID [facility] Administration Guaifenesin 1,200 mg 07/08/16 21:00 Mucinex PO Q12HR [facility] Heparin Sodium (Porcine) 5,000 unit 07/05/16 21:00 07/08/16 09:29 Heparin SQ 5,000 unit Q12HR [facility] Administration Ceftriaxone Sodium 1,000 mg/ 50 mls @ 100 mls/hr 07/07/16 17:15 07/08/16 09: 26 Sodium Chloride IVPB 100 mls/hr Q24HR [facility] Administration Insulin Human Lispro 0 unit 07/05/16 12:30 07/08/16 13:30 Humalog SQ 1 unit ACHS [facility] Administration Protocol Levothyroxine Sodium 50 mcg 07/06/16 06:30 07/08/16 07:11 Synthroid PO 50 mcg DAILY@0630 [facility] Administration Methylprednisolone Sodium Succinate 60 mg 07/05/16 00:00 07/08/16 13:31 Solu-Medrol IV 60 mg Q6HR [facility] Administration Multivitamins 1 each 07/06/16 12:00 07/08/16 13:31 Theragran PO 1 each DAILY@1200 [facility] Administration Propranolol HCl 20 mg 07/05/16 21:00 07/08/16 09:30 Inderal PO 20 mg BID [facility] Administration Senna 8.6 mg 07/05/16 12:13 07/07/16 09:50 Senokot PO 8.6 mg HS PRN Administration Constipation Sodium Chloride 10 ml 07/05/16 09:00 07/08/16 09:47 Saline Flush IV 10 ml BID [facility] Administration Tamsulosin HCl 0.4 mg 07/05/16 12:30 07/08/16 09:47 Flomax PO 0.4 mg DAILY [facility] Administration Temazepam 15 mg 07/05/16 12:19 Restoril PO HS PRN Insomnia Trazodone HCl 150 mg 07/05/16 21:00 07/07/16 22:12 Desyrel PO 150 mg HS [facility] Administration Objective - Vital Signs Vital signs: Vital Signs Temp 97.2 F L 07/08/16 15:00 Pulse 61 07/08/16 16:05 Resp 21 07/08/16 15:00 BP 158/74 07/08/16 15:00 Pulse Ox 96 07/08/16 15:47 Intake & Output 07/07/16 07/08/16 07/08/16 18:59 06:59 18:59 Intake Total 600 Output Total 1000 Balance -1000 600 Weight 76.204 kg Intake: Oral 600 Output: Urine 1000 Other: Voiding Method Urinal # Voids 1 1 3 # Bowel Movements 0 - Exam PHYSICAL EXAM: VITAL SIGNS: As above GENERAL: [Sitting up in bed,] HEENT: [Pupils equal conjunctiva normal. No conjunctival pallor] NECK: [Supple, no JVD] RESPIRATORY EFFORT:[ Increased] LUNGS: [Diminished throughout with scattered rhonchi, crackles, no wheezing CARDIOVASCULAR[ regular S1 and S2, no murmurs rubs or gallops, trace edema] GI: [Abdomen soft, nontender, positive bowel sounds.] PSYCH: [Alert and oriented -3, mood and affect normal.] NEURO: No focal deficits - Labs CBC & Chem 7: 07/08/16 09:49 07/08/16 09:49 Labs: Abnormal Lab Results - Last 24 Hours (Table) 07/07/16 07/07/16 07/08/16 Range/Units 17:05 20:54 07:37 RBC (4.30-5.90) m/uL Hgb (13.0-17.5) gm/dL Hct (39.0-53.0) % Neutrophils # (1.3-7.7) k/uL Lymphocytes # (1.0-4.8) k/uL BUN (9-20) mg/dL Creatinine (0.66-1.25) mg/dL Glucose (74-99) mg/dL POC Glucose (mg/dL) 136 H 128 H 121 H (75-99) mg/dL 07/08/16 07/08/16 07/08/16 Range/Units 09:49 09:49 12:21 RBC 3.50 L (4.30-5.90) m/uL Hgb 10.6 L (13.0-17.5) gm/dL Hct 34.2 L (39.0-53.0) % Neutrophils # 9.6 H (1.3-7.7) k/uL Lymphocytes # 0.4 L (1.0-4.8) k/uL BUN 36 H (9-20) mg/dL Creatinine 1.35 H (0.66-1.25) mg/dL Glucose 160 H (74-99) mg/dL POC Glucose (mg/dL) 136 H (75-99) mg/dL Assessment and Plan Plan: 1. [ Acute COPD exacerbation with acute purulent tracheobronchitis, bronchopneumonia with acute on chronic hypoxic respiratory failure, present on admission]. 2. [Suspected right mid lung mass lesion per [facility] CT scan, possible malignancy. moderate emphysematous changes bilaterally with parahilar post inflammatory change, right hilum with more nodular component, possibly post inflammatory per CT 3. [ Gastroesophageal reflux disease]. 4. [ Essential hypertension]. 5. [ Hypothyroidism]. 6. [ Degenerative joint disease with chronic back pain]. 7. [ Chronic constipation]. 8. History of anxiety, depression, not otherwise specified 9. Remote history of nicotine dependence 10. Acute renal failure, possibly antibiotic induced. Plan: Continue on current medication regime, nebulized bronchodilators, Rocephin , azithromycin, steroids, monitoring and symptomatic treatment. Receiving nebulized treatments [id number] as per pulmonary. PT/OT. Close monitoring of renal function with repeat labs ordered for a.m. Further recommendations to follow. Once medically stable, patient will be discharged to [facility] bed. The impression and plan of care has been dictated as directed. : I performed a H&P examination of this patient and discussed the same with the dictator. I agree with the dictator's note. Any additional findings/opinions/ etc. will be noted.
[2016-07-08 17:28] LABS: Glucose,Whole Blood 171 mg/dL (75-99)
[2016-07-08] MEDS: SYMBICORT 160-4.5 MCG INHALER INHALATION SCH (19:38)
[2016-07-08 21:46] LABS: Glucose,Whole Blood 146 mg/dL (75-99)
[2016-07-08] MEDS: guaiFENesin 600 MG TABLET.ER PO SCH (21:46)
[2016-07-08] MEDS: traZODone HCL 50 MG TAB PO SCH (21:47)
--- NOTE | 2016-07-08 22:20 | PN ---
DATE OF SERVICE: 07/08/2016 This 81-year-old gentleman who was admitted with COPD, acute exacerbation, also had a CT scan of the chest. The patient has been suspected of mass lesion from the periphery. The CT scan showed a nodular component identified in the right hilum, most likely post inflammatory. Malignancy cannot be excluded. PET scan or repeat CT scan is recommended. Otherwise, we will follow the patient closely with Dr. Vizcarra. Seen and evaluated the patient along with the nurse practitioner. Please refer to the nurse practitioner's notes and impressions documented as a scribe for further information. Further recommendations to follow.
[2016-07-09] MEDS: methylPREDNISolone SOD SUCCI 125 MG/2 ML VIAL IV SCH ×5 (00:25→23:40)
[2016-07-09] MEDS: LEVOTHYROXINE 50 MCG TAB PO SCH (06:58)
[2016-07-09] MEDS: SYMBICORT 160-4.5 MCG INHALER INHALATION SCH ×2 (07:11→19:54)
[2016-07-09] MEDS: IPRATROPIUM-ALBUTEROL 3 ML NEB INHALATION SCH ×4 (07:11→19:54)
[2016-07-09 07:22] LABS: Glucose,Whole Blood 124 mg/dL (75-99)
[2016-07-09] MEDS: ALPRAZolam 0.25 MG TAB PO SCH ×4 (08:32→21:10)
[2016-07-09] MEDS: INSULIN LISPRO (humaLOG) 300 UNIT/3 ML VIAL SQ SCH ×4 (08:32→21:39)
[2016-07-09] MEDS: PROPRANOLOL 20 MG TAB PO SCH ×2 (08:33→21:07)
[2016-07-09] MEDS: BISACODYL 10 MG SUPP RECTAL SCH (08:33)
[2016-07-09] MEDS: HEPARIN SODIUM,PORCINE 5,000 UNIT/ML 1 ML VIAL SQ SCH ×2 (08:34→21:06)
[2016-07-09] MEDS: AZITHROMYCIN 500 MG TAB PO SCH (08:34)
[2016-07-09] MEDS: DOCUSATE 100 MG CAP PO SCH (08:36)
[2016-07-09] MEDS: CHOLECALCIFEROL 1,000 UNIT TAB PO SCH (08:36)
[2016-07-09] MEDS: FAMOTIDINE 20 MG TAB PO SCH (08:37)
[2016-07-09] MEDS: GABAPENTIN 400 MG CAP PO SCH ×3 (08:37→21:07)
[2016-07-09] MEDS: FLUoxetine HCL 20 MG CAP PO SCH (08:37)
[2016-07-09] MEDS: guaiFENesin 600 MG TABLET.ER PO SCH ×2 (08:38→21:06)
[2016-07-09] MEDS: TAMSULOSIN 0.4 MG CAP.ER.24H PO SCH (08:38)
[2016-07-09 09:40] LABS: Basophils % (A) 0 %; CHCM 30.3; Eosinophils % (A) 0 %; HDW 2.29; HGB 11.1 gm/dL (13.0-17.5); Hypochromasia Moderate; Luc # (Auto) 0.08; Luc % (Auto) 1; Lymphocytes # (A) 0.4 k/uL (1.0-4.8); Lymphocytes % (A) 3 %; MCH 29.9 pg (25.0-35.0); MCHC 30.1 g/dL (31.0-37.0); MCV 99.5 fL (80.0-100.0); Mean Platelet Volume 7.5; Monocytes # (A) 0.5 k/uL (0-1.0); Monocytes % (A) 3 %; Neutrophils # (A) 13.4 k/uL (1.3-7.7); Neutrophils % (A) 93 %; RBC 3.72 m/uL (4.30-5.90); RDW 12.2 % (11.5-15.5); WBC 14.4 k/uL (3.8-10.6)
[2016-07-09 10:20] LABS: Anion Gap 9 mmol/L; Blood Urea Nitrogen 39 mg/dL (9-20); Calcium 8.8 mg/dL (8.4-10.2); Carbon Dioxide 27 mmol/L (22-30); Chloride 101 mmol/L (98-107); Glucose 117 mg/dL (74-99); Non-African American GFR(MDRD) 56 (>60 ml/min/1.73 sqM); Potassium 4.5 mmol/L (3.5-5.1); Sodium 137 mmol/L (137-145)
[2016-07-09 11:35] LABS: Glucose,Whole Blood 138 mg/dL (75-99)
[2016-07-09] MEDS: MULTIVITAMINS, THERA 1 EACH TAB PO SCH (13:02)
[2016-07-09] MEDS ORDERED: DOCUSATE 100 MG CAP PO SCH (16:00)
--- NOTE | 2016-07-09 16:32 | P.PN ---
Subjective Principal diagnosis: COPD exacerbation 81-year-old male patient with advanced COPD was coming in for an acute COPD exacerbation. The patient had undergone a CAT scan of the chest at [facility] and it shows a masslike consolidation in the right midlung area is probably an area of infiltrate than a true tumor. In any rate, the patient advanced lung disease and he will not be a candidate for any further diagnostic or therapeutic measures even if diagnosis of cancer was established. The patient is in for an acute COPD exacerbation. He is a congested cough and he is unable to bring up much of sputum. No chills. No fever. He reports only minimal amount of improvement over the past 24 hours and is less short of breath compared to yesterday. He is an ex-smoker and he quit smoking approximately 4 years ago. The patient is seen again today 07/08/2016 in follow-up on the regular medical floor. He is still slow to progress. Not significantly better today as compared to yesterday but states he is better overall. He is able to carry on more sentences without significant shortness of breath. He is still requiring 5 L/m per nasal cannula to maintain O2 saturations in the 90s. He specifically afebrile. He is still quite bronchospastic and wheezy. The patient was seen again today in follow-up on 07/09/2016 on the regular medical floor. He is awake and alert in no acute distress. He is still somewhat bronchospastic and wheezing with activity. He is tolerating a little more activity today as compared to yesterday. Objective - Vital Signs Vital signs: Vital Signs Temp 97.1 F L 07/09/16 07:00 Pulse 80 07/09/16 16:12 Resp 19 07/09/16 07:00 BP 172/80 07/09/16 07:00 Pulse Ox 96 07/09/16 16:12 Intake & Output 07/08/16 07/09/16 07/09/16 18:59 06:59 18:59 Intake Total 50 50 Output Total 1500 Balance -1450 50 Weight 76.204 kg Intake: IV 50 cefTRIAXone 1,000 mg In 50 Sodium Chloride 0.9% 50 ml @ 100 mls/hr IVPB Q24HR [facility] Rx#:[id number] Intake, IV Titration 50 Amount cefTRIAXone 1,000 mg In 50 Sodium Chloride 0.9% 50 ml @ 100 mls/hr IVPB Q24HR [facility] Rx#:[id number] Output: Urine 1500 Other: Voiding Method Urinal # Voids 3 0 # Bowel Movements 0 1 - Exam The patient appeared well nourished and normally developed. Vital signs as documented. Head exam is unremarkable. No scleral icterus or corneal arcus noted. Neck is without jugular venous distension, thyromegaly, or carotid bruits. Carotid upstrokes are brisk bilaterally. Lung sounds are markedly diminished in the lungs throughout and the patient is prolongation of expiratory phase of breathing and scattered rhonchi heard throughout the lung stafford.. Cardiac exam reveals the PMI to be normally sized and situated. Rhythm is regular. First and second heart sounds normal. No murmurs, rubs or gallops. Abdominal exam reveals normal bowel sounds, no masses, no organomegaly and no aortic enlargement. Extremities are nonedematous and both femoral and pedal pulses are normal. - Labs CBC & Chem 7: 07/09/16 08:58 07/09/16 08:58 Labs: Abnormal Lab Results - Last 24 Hours (Table) 07/08/16 07/08/16 07/09/16 Range/Units 17:24 21:45 07:14 WBC (3.8-10.6) k/uL RBC (4.30-5.90) m/uL Hgb (13.0-17.5) gm/dL Hct (39.0-53.0) % MCHC (31.0-37.0) g/dL Neutrophils # (1.3-7.7) k/uL Lymphocytes # (1.0-4.8) k/uL BUN (9-20) mg/dL Glucose (74-99) mg/dL POC Glucose (mg/dL) 171 H 146 H 124 H (75-99) mg/dL 07/09/16 07/09/16 07/09/16 Range/Units 08:58 08:58 11:30 WBC 14.4 H (3.8-10.6) k/uL RBC 3.72 L (4.30-5.90) m/uL Hgb 11.1 L (13.0-17.5) gm/dL Hct 37.0 L (39.0-53.0) % MCHC 30.1 L (31.0-37.0) g/dL Neutrophils # 13.4 H (1.3-7.7) k/uL Lymphocytes # 0.4 L (1.0-4.8) k/uL BUN 39 H (9-20) mg/dL Glucose 117 H (74-99) mg/dL POC Glucose (mg/dL) 138 H (75-99) mg/dL Assessment and Plan Plan: Assessment 1 acute COPD exacerbation, with secondary shortness of breath 2 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 5 generalized anxiety disorder 6 renal failure, likely Bactrim induced with a possible chronic renal failure Plan: The patient was seen and evaluated by Dr. Vizcarra. We'll continue with his current medications. He has been slow to progress. He is somewhat quite back to his baseline. We'll continue with his current medications. We'll increase his activity as tolerated. We'll continue to follow.
[2016-07-09 17:33] LABS: Glucose,Whole Blood 139 mg/dL (75-99)
--- NOTE | 2016-07-09 19:11 | P.PN ---
Subjective Date of service 07/09/2016. Progress note being dictated for Dr. Ch. Interval history: This is an 81-year-old gentleman admitted with acute COPD exacerbation, respiratory failure, bronchopneumonia, suspected right mid lung mass lesion per [facility] CT and multiple other medical issues. Maintained on nebulized bronchodilators, Zithromax, Rocephin and steroids with breathing mildly improving slowly. Still short of breath at rest, wheezy. Renal function continues to improve. Afebrile. Objective - Vital Signs Vital signs: Vital Signs Temp 97.7 F 07/09/16 15:00 Pulse 84 07/09/16 16:32 Resp 21 07/09/16 15:00 BP 166/74 07/09/16 15:00 Pulse Ox 96 07/09/16 16:12 Intake & Output 07/09/16 07/09/16 07/10/16 06:59 18:59 06:59 Intake Total 50 Balance 50 Intake: IV 50 cefTRIAXone 1,000 mg In 50 Sodium Chloride 0.9% 50 ml @ 100 mls/hr IVPB Q24HR [facility] Rx#:[id number] Other: # Voids 0 3 # Bowel Movements 1 - Exam PHYSICAL EXAM: VITAL SIGNS: As above GENERAL: [Sitting up at side of bed, wheezy,] HEENT: [Pupils equal conjunctiva normal. No conjunctival pallor] NECK: [Supple, no JVD] RESPIRATORY EFFORT:[ Increased] LUNGS: [Diminished throughout with scattered rhonchi, crackles, no wheezing CARDIOVASCULAR[ regular S1 and S2, no murmurs rubs or gallops, no edema] GI: [Abdomen soft, nontender, positive bowel sounds.] PSYCH: [Alert and oriented -3, mood and affect normal.] NEURO: No focal deficits - Labs CBC & Chem 7: 07/09/16 08:58 07/09/16 08:58 Labs: Abnormal Lab Results - Last 24 Hours (Table) 07/08/16 07/09/16 07/09/16 Range/Units 21:45 07:14 08:58 WBC 14.4 H (3.8-10.6) k/uL RBC 3.72 L (4.30-5.90) m/uL Hgb 11.1 L (13.0-17.5) gm/dL Hct 37.0 L (39.0-53.0) % MCHC 30.1 L (31.0-37.0) g/dL Neutrophils # 13.4 H (1.3-7.7) k/uL Lymphocytes # 0.4 L (1.0-4.8) k/uL BUN (9-20) mg/dL Glucose (74-99) mg/dL POC Glucose (mg/dL) 146 H 124 H (75-99) mg/dL 07/09/16 07/09/16 07/09/16 Range/Units 08:58 11:30 17:14 WBC (3.8-10.6) k/uL RBC (4.30-5.90) m/uL Hgb (13.0-17.5) gm/dL Hct (39.0-53.0) % MCHC (31.0-37.0) g/dL Neutrophils # (1.3-7.7) k/uL Lymphocytes # (1.0-4.8) k/uL BUN 39 H (9-20) mg/dL Glucose 117 H (74-99) mg/dL POC Glucose (mg/dL) 138 H 139 H (75-99) mg/dL Assessment and Plan Plan: 1. [ Acute COPD exacerbation with acute purulent tracheobronchitis, bronchopneumonia with acute on chronic hypoxic respiratory failure, present on admission]. 2. [Suspected right mid lung mass lesion per [facility] CT scan, possible malignancy. moderate emphysematous changes bilaterally with parahilar post inflammatory change, right hilum with more nodular component, possibly post inflammatory per repeat CT 3. [ Gastroesophageal reflux disease]. 4. [ Essential hypertension]. 5. [ Hypothyroidism]. 6. [ Degenerative joint disease with chronic back pain]. 7. [ Chronic constipation]. 8. History of anxiety, depression, not otherwise specified 9. Remote history of nicotine dependence 10. Acute renal failure, possibly antibiotic induced. Plan: Continue on current medication regime, nebulized bronchodilators, Rocephin , azithromycin, steroids, monitoring and symptomatic treatment. PT/OT. Minimal reserve with minimal activity. Follow closely with pulmonary. Prognosis guarded given multiple complex medical issues. Once medically stable , patient will be discharged to [facility]. The impression and plan of care has been dictated as directed. : I performed a H&P examination of this patient and discussed the same with the dictator. I agree with the dictator's note. Any additional findings/opinions/ etc. will be noted.
[2016-07-09] MEDS: traZODone HCL 50 MG TAB PO SCH (21:07)
[2016-07-09 21:31] LABS: Glucose,Whole Blood 113 mg/dL (75-99)
[2016-07-09] MEDS: SENNOSIDES 8.6 MG TAB PO PRN (21:39)
[2016-07-10] MEDS: IPRATROPIUM-ALBUTEROL 3 ML NEB INHALATION PRN ×2 (03:15→23:09)
[2016-07-10] MEDS: methylPREDNISolone SOD SUCCI 125 MG/2 ML VIAL IV SCH ×3 (06:25→17:52)
[2016-07-10] MEDS: LEVOTHYROXINE 50 MCG TAB PO SCH (06:25)
[2016-07-10 07:53] LABS: Glucose,Whole Blood 119 mg/dL (75-99)
[2016-07-10 08:21] LABS: Basophils % (A) 0 %; CH 29.9; CHCM 31.1; Eosinophils % (A) 0 %; HCT 35.5 % (39.0-53.0); HDW 2.42; HGB 11.4 gm/dL (13.0-17.5); Hypochromasia Slight; Luc # (Auto) 0.08; Luc % (Auto) 1; Lymphocytes # (A) 0.4 k/uL (1.0-4.8); Lymphocytes % (A) 3 %; MCH 31.1 pg (25.0-35.0); MCHC 32.2 g/dL (31.0-37.0); MCV 96.6 fL (80.0-100.0); Mean Platelet Volume 7.9; Monocytes # (A) 0.8 k/uL (0-1.0); Monocytes % (A) 5 %; Neutrophils # (A) 13.6 k/uL (1.3-7.7); Neutrophils % (A) 91 %; RBC 3.68 m/uL (4.30-5.90); RDW 11.9 % (11.5-15.5); WBC (Perox) 14.96
[2016-07-10] MEDS: INSULIN LISPRO (humaLOG) 300 UNIT/3 ML VIAL SQ SCH ×5 (08:30→22:04)
[2016-07-10 08:42] LABS: Anion Gap 6 mmol/L; Blood Urea Nitrogen 35 mg/dL (9-20); Calcium 8.7 mg/dL (8.4-10.2); Carbon Dioxide 31 mmol/L (22-30); Chloride 102 mmol/L (98-107); Glucose 110 mg/dL (74-99); Non-African American GFR(MDRD) 59 (>60 ml/min/1.73 sqM); Potassium 4.5 mmol/L (3.5-5.1); Sodium 139 mmol/L (137-145)
[2016-07-10] MEDS: IPRATROPIUM-ALBUTEROL 3 ML NEB INHALATION SCH ×4 (08:46→19:14)
[2016-07-10] MEDS: SYMBICORT 160-4.5 MCG INHALER INHALATION SCH ×2 (08:46→19:15)
[2016-07-10] MEDS: HYDROcodone/APAP 5-325MG 1 EACH TAB PO PRN ×2 (09:27→23:01)
[2016-07-10] MEDS: ALPRAZolam 0.25 MG TAB PO SCH ×4 (09:27→21:21)
[2016-07-10] MEDS: BISACODYL 10 MG SUPP RECTAL SCH (09:28)
[2016-07-10] MEDS: GABAPENTIN 400 MG CAP PO SCH ×3 (09:29→21:12)
[2016-07-10] MEDS: guaiFENesin 600 MG TABLET.ER PO SCH ×2 (09:29→21:10)
[2016-07-10] MEDS: CHOLECALCIFEROL 1,000 UNIT TAB PO SCH (09:30)
[2016-07-10] MEDS: PROPRANOLOL 20 MG TAB PO SCH ×2 (09:30→21:11)
[2016-07-10] MEDS: FAMOTIDINE 20 MG TAB PO SCH (09:30)
[2016-07-10] MEDS: DOCUSATE 100 MG CAP PO SCH (09:30)
[2016-07-10] MEDS: TAMSULOSIN 0.4 MG CAP.ER.24H PO SCH (09:31)
[2016-07-10] MEDS: HEPARIN SODIUM,PORCINE 5,000 UNIT/ML 1 ML VIAL SQ SCH ×2 (09:31→21:11)
[2016-07-10] MEDS: AZITHROMYCIN 500 MG TAB PO SCH (09:31)
[2016-07-10] MEDS ORDERED: MAGNESIUM CITRATE 296 ML BOTTLE PO ONE (09:50)
--- NOTE | 2016-07-10 10:10 | P.DS ---
Providers Date of admission: 07/04/16 23:34 Expected date of discharge: 07/10/16 Attending physician: Avril Ch Consults: 07/04/16 23:23 Consult Physician Routine Consulting Provider: Ab Trevizo Reason/Comments: copd Do you want consulting provider notified?: Yes Dr. Vizcarra, pulmonary Primary care physician: [place] Hospital Course: Final Diagnoses: 1. [ Acute COPD exacerbation with acute purulent tracheobronchitis, bronchopneumonia with acute on chronic hypoxic respiratory failure, present on admission]. 2. [Suspected right mid lung mass lesion per [facility] CT scan, possible malignancy. Moderate emphysematous changes bilaterally with parahilar post inflammatory change, right hilum with more nodular component, possibly post inflammatory per repeat CT. 3. [ Gastroesophageal reflux disease]. 4. [ Essential hypertension]. 5. [ Hypothyroidism]. 6. [ Degenerative joint disease with chronic back pain]. 7. [ Chronic constipation]. 8. History of anxiety, depression, not otherwise specified 9. Remote history of nicotine dependence 10. Acute renal failure, possibly antibiotic induced, improved. Hospital course:This is an 81-year-old gentleman admitted with acute COPD exacerbation, respiratory failure, bronchopneumonia, suspected right mid lung mass lesion per [facility] CT scan, generalized weakness and multiple other medical issues in a patient with chronic hypoxic respiratory failure during 5 L nasal cannula O2 at home. Repeat CT scan reported moderate emphysematous changes bilaterally with parahilar post inflammatory change, right hilum with more nodular component, possibly post inflammatory. Maintained on nebulized bronchodilators, antibiotics and steroids with slow improvement in breathing. Currently at baseline, maintaining O2 sats of 97% on 5 L nasal cannula which will be titrated down. Patient has been cleared by pulmonary for discharge to [facility] rehab. Patient is being discharged in a stable condition with guarded prognosis. The impression and plan of care has been dictated as directed. : I performed a H&P examination of this patient and discussed the same with the dictator. I agree with the dictator's note. Any additional findings/opinions/ etc. will be noted. Patient Condition at Discharge: Stable Plan - Discharge Summary New Discharge Prescriptions: Azithromycin [Zithromax] 500 mg PO DAILY #5 tab HYDROcodone/APAP 5-325MG [[place] 5-325] 5 mg PO TID PRN #20 PRN Reason: Pain Control Discharge Medication List Budesonide/Formoterol Fumarate [Symbicort 160-4.5 Mcg Inhaler] 2 puff INHALATION RT-BID 07/04/16 [History] guaiFENesin-DM 600/30MG [Mucinex Dm] 1 tab PO Q12HR 07/04/16 [History] Acetaminophen Tab [Tylenol] 650 mg PO Q4H PRN 07/05/16 [History] Cholecalciferol [Vitamin D3] 2,000 unit PO DAILY 07/05/16 [History] FLUoxetine HCL [PROzac] 20 mg PO DAILY 07/05/16 [History] Fluticasone Nasal [place] [Flonase Nasal [place]] 1 spray INTRANASAL DAILY PRN 07/05 [History] Gabapentin [Neurontin] 400 mg PO TID 07/05/16 [History] Gabapentin [Neurontin] 400 mg PO TID 07/05/16 [History] Levothyroxine Sodium [Synthroid] 50 mcg PO DAILY 07/05/16 [History] Levothyroxine Sodium [Synthroid] 50 mcg PO DAILY 07/05/16 [History] Multivitamin/Iron/Folic Acid [Centrum Complete Multivit Tab] 1 tab PO DAILY [History] Propranolol [Inderal] 20 mg PO BID 07/05/16 [History] Ranitidine HCl [Zantac] 150 mg PO BID 07/05/16 [History] Tamsulosin HCl [Flomax] 0.4 mg PO DAILY 07/05/16 [History] traZODone HCL 150 mg PO HS 07/05/16 [History] Azithromycin [Zithromax] 500 mg PO DAILY #5 tab 07/10/16 [Rx] Bisacodyl [Dulcolax] 10 mg RECTAL DAILY suppositor 07/10/16 [Rx] Docusate [Colace] 200 mg PO DAILY cap 07/10/16 [Rx] HYDROcodone/APAP 5-325MG [[place] 5-325] 5 mg PO TID PRN #20 07/10/16 [Rx] Ipratropium-Albuterol Nebulize [Duoneb 0.5 mg-3 mg/3 ml Soln] 3 ml INHALATION RT -Q4H PRN neb 07/10/16 [Rx] Ipratropium-Albuterol Nebulize [Duoneb 0.5 mg-3 mg/3 ml Soln] 3 ml INHALATION RT -QID neb 07/10/16 [Rx] Sennosides [Senokot] 8.6 mg PO BID tab 07/10/16 [Rx] Follow up Appointment(s)/Referral(s): Ab Ng MD [Primary Care Provider] - 1 Week (after dc from [facility]) Hank Vizcarra MD [STAFF PHYSICIAN] - 2 Weeks Cheng Lagos MD [REFERRING] - 3 Days (While at [facility]) Activity/Diet/Wound Care/Special Instructions: CBC,bmp in 3 days 4-5 l ks O2 [facility] Pending pulmonary clearance Discharge Disposition: TRANSFER TO SNF/ECF
[2016-07-10] MEDS: FLUoxetine HCL 20 MG CAP PO SCH (10:12)
[2016-07-10] MEDS: NYSTATIN 100,000 UNIT/ML SUSP 500,000 UNIT/5 ML CUP PO SCH ×4 (10:13→21:21)
[2016-07-10 11:56] LABS: Glucose,Whole Blood 124 mg/dL (75-99)
[2016-07-10] MEDS: ACETAMINOPHEN TAB 325 MG TAB PO PRN (12:37)
[2016-07-10] MEDS: MULTIVITAMINS, THERA 1 EACH TAB PO SCH (12:38)
--- NOTE | 2016-07-10 15:24 | P.PN ---
Subjective Principal diagnosis: COPD exacerbation 81-year-old male patient with advanced COPD was coming in for an acute COPD exacerbation. The patient had undergone a CAT scan of the chest at [facility] and it shows a masslike consolidation in the right midlung area is probably an area of infiltrate than a true tumor. In any rate, the patient advanced lung disease and he will not be a candidate for any further diagnostic or therapeutic measures even if diagnosis of cancer was established. The patient is in for an acute COPD exacerbation. He is a congested cough and he is unable to bring up much of sputum. No chills. No fever. He reports only minimal amount of improvement over the past 24 hours and is less short of breath compared to yesterday. He is an ex-smoker and he quit smoking approximately 4 years ago. The patient is seen again today 07/08/2016 in follow-up on the regular medical floor. He is still slow to progress. Not significantly better today as compared to yesterday but states he is better overall. He is able to carry on more sentences without significant shortness of breath. He is still requiring 5 L/m per nasal cannula to maintain O2 saturations in the 90s. He specifically afebrile. He is still quite bronchospastic and wheezy. The patient was seen again today in follow-up on 07/09/2016 on the regular medical floor. He is awake and alert in no acute distress. He is still somewhat bronchospastic and wheezing with activity. He is tolerating a little more activity today as compared to yesterday. The patient is seen and evaluated again today 07/10/2016 on the regular medical floor. He is awake and alert in no acute distress. He is breathing easier today as compared to yesterday. Nearly back to his baseline. He is maintaining O2 saturations in the mid 90s on 5 L/m per nasal cannula. Objective - Vital Signs Vital signs: Vital Signs Temp 97.1 F L 07/10/16 07:00 Pulse 76 07/10/16 11:42 Resp 20 07/10/16 08:00 BP 165/82 07/10/16 07:00 Pulse Ox 96 07/10/16 08:48 Intake & Output 07/09/16 07/10/16 07/10/16 18:59 06:59 18:59 Intake Total 50 522 550 Output Total 400 400 Balance 50 122 150 Weight 76.204 kg Intake: IV 50 50 cefTRIAXone 1,000 mg In 50 50 Sodium Chloride 0.9% 50 ml @ 100 mls/hr IVPB Q24HR [facility] Rx#:[id number] Oral 522 500 Output: Urine 400 400 Other: Voiding Method Urinal # Voids 3 1 - Exam The patient appeared well nourished and normally developed. Vital signs as documented. Head exam is unremarkable. No scleral icterus or corneal arcus noted. Neck is without jugular venous distension, thyromegaly, or carotid bruits. Carotid upstrokes are brisk bilaterally. Lung sounds are markedly diminished in the lungs throughout and the patient is prolongation of expiratory phase of breathing and scattered rhonchi heard throughout the lung stafford.. Cardiac exam reveals the PMI to be normally sized and situated. Rhythm is regular. First and second heart sounds normal. No murmurs, rubs or gallops. Abdominal exam reveals normal bowel sounds, no masses, no organomegaly and no aortic enlargement. Extremities are nonedematous and both femoral and pedal pulses are normal. - Labs CBC & Chem 7: 07/10/16 08:03 07/10/16 08:03 Labs: Abnormal Lab Results - Last 24 Hours (Table) 07/09/16 07/09/16 07/10/16 Range/Units 17:14 21:29 07:43 WBC (3.8-10.6) k/uL RBC (4.30-5.90) m/uL Hgb (13.0-17.5) gm/dL Hct (39.0-53.0) % Neutrophils # (1.3-7.7) k/uL Lymphocytes # (1.0-4.8) k/uL Carbon Dioxide (22-30) mmol/L BUN (9-20) mg/dL Glucose (74-99) mg/dL POC Glucose (mg/dL) 139 H 113 H 119 H (75-99) mg/dL 07/10/16 07/10/16 07/10/16 Range/Units 08:03 08:03 11:42 WBC 15.0 H (3.8-10.6) k/uL RBC 3.68 L (4.30-5.90) m/uL Hgb 11.4 L (13.0-17.5) gm/dL Hct 35.5 L (39.0-53.0) % Neutrophils # 13.6 H (1.3-7.7) k/uL Lymphocytes # 0.4 L (1.0-4.8) k/uL Carbon Dioxide 31 H (22-30) mmol/L BUN 35 H (9-20) mg/dL Glucose 110 H (74-99) mg/dL POC Glucose (mg/dL) 124 H (75-99) mg/dL Assessment and Plan Plan: Assessment: 1 acute COPD exacerbation, with secondary shortness of breath 2 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 5 generalized anxiety disorder 6 renal failure, likely Bactrim induced with a possible chronic renal failure Plan: The patient was seen and evaluated by Dr. Vizcarra. He is cleared for discharge to an extended care facility where he can continue with 24-hour care. He'll be seen in our office in 1-2 weeks' time. He'll complete his course of antibiotics and prednisone taper.
[2016-07-10 17:50] LABS: Glucose,Whole Blood 241 mg/dL (75-99)
[2016-07-10] MEDS: SENNOSIDES 8.6 MG TAB PO SCH (21:11)
[2016-07-10] MEDS: traZODone HCL 50 MG TAB PO SCH (21:12)
[2016-07-10] MEDS: FLUTICASONE 50MCG/SPRAY NASAL 16GM INTRANASAL PRN (21:22)
[2016-07-10 21:26] LABS: Glucose,Whole Blood 131 mg/dL (75-99)
[2016-07-11] MEDS: methylPREDNISolone SOD SUCCI 125 MG/2 ML VIAL IV SCH ×5 (00:05→23:16)
[2016-07-11] MEDS: IPRATROPIUM-ALBUTEROL 3 ML NEB INHALATION PRN (04:57)
[2016-07-11] MEDS: LEVOTHYROXINE 50 MCG TAB PO SCH (06:28)
[2016-07-11 07:26] LABS: Glucose,Whole Blood 110 mg/dL (75-99)
[2016-07-11] MEDS: INSULIN LISPRO (humaLOG) 300 UNIT/3 ML VIAL SQ SCH ×4 (07:28→21:12)
[2016-07-11] MEDS: BISACODYL 10 MG SUPP RECTAL SCH (08:23)
[2016-07-11] MEDS: HEPARIN SODIUM,PORCINE 5,000 UNIT/ML 1 ML VIAL SQ SCH ×2 (08:28→20:55)
[2016-07-11] MEDS: AZITHROMYCIN 500 MG TAB PO SCH (08:31)
[2016-07-11] MEDS: ALPRAZolam 0.25 MG TAB PO SCH ×4 (08:31→21:07)
[2016-07-11] MEDS: PROPRANOLOL 20 MG TAB PO SCH ×2 (08:31→20:54)
[2016-07-11] MEDS: GABAPENTIN 400 MG CAP PO SCH ×3 (08:31→20:59)
[2016-07-11] MEDS: CHOLECALCIFEROL 1,000 UNIT TAB PO SCH (08:31)
[2016-07-11] MEDS: FLUoxetine HCL 20 MG CAP PO SCH (08:31)
[2016-07-11] MEDS: DOCUSATE 100 MG CAP PO SCH (08:31)
[2016-07-11] MEDS: TAMSULOSIN 0.4 MG CAP.ER.24H PO SCH (08:31)
[2016-07-11] MEDS: NYSTATIN 100,000 UNIT/ML SUSP 500,000 UNIT/5 ML CUP PO SCH ×4 (08:31→21:16)
[2016-07-11] MEDS: FAMOTIDINE 20 MG TAB PO SCH (08:31)
[2016-07-11] MEDS: guaiFENesin 600 MG TABLET.ER PO SCH ×2 (08:31→20:55)
[2016-07-11] MEDS: SYMBICORT 160-4.5 MCG INHALER INHALATION SCH ×2 (08:34→19:03)
[2016-07-11] MEDS: HYDROcodone/APAP 5-325MG 1 EACH TAB PO PRN (08:35)
[2016-07-11] MEDS: IPRATROPIUM-ALBUTEROL 3 ML NEB INHALATION SCH ×4 (08:35→19:03)
[2016-07-11 12:20] LABS: Glucose,Whole Blood 143 mg/dL (75-99)
[2016-07-11] MEDS: MULTIVITAMINS, THERA 1 EACH TAB PO SCH (12:53)
--- NOTE | 2016-07-11 14:04 | P.PN ---
Subjective Principal diagnosis: COPD exacerbation 81-year-old male patient with advanced COPD was coming in for an acute COPD exacerbation. The patient had undergone a CAT scan of the chest at [facility] and it shows a masslike consolidation in the right midlung area is probably an area of infiltrate than a true tumor. In any rate, the patient advanced lung disease and he will not be a candidate for any further diagnostic or therapeutic measures even if diagnosis of cancer was established. The patient is in for an acute COPD exacerbation. He is a congested cough and he is unable to bring up much of sputum. No chills. No fever. He reports only minimal amount of improvement over the past 24 hours and is less short of breath compared to yesterday. He is an ex-smoker and he quit smoking approximately 4 years ago. The patient is seen again today 07/08/2016 in follow-up on the regular medical floor. He is still slow to progress. Not significantly better today as compared to yesterday but states he is better overall. He is able to carry on more sentences without significant shortness of breath. He is still requiring 5 L/m per nasal cannula to maintain O2 saturations in the 90s. He specifically afebrile. He is still quite bronchospastic and wheezy. The patient was seen again today in follow-up on 07/09/2016 on the regular medical floor. He is awake and alert in no acute distress. He is still somewhat bronchospastic and wheezing with activity. He is tolerating a little more activity today as compared to yesterday. The patient is seen and evaluated again today 07/10/2016 on the regular medical floor. He is awake and alert in no acute distress. He is breathing easier today as compared to yesterday. Nearly back to his baseline. He is maintaining O2 saturations in the mid 90s on 5 L/m per nasal cannula. The patient is seen again today 07/11/2016 in follow-up on the regular medical floor. He is currently sitting up in bed having lunch. He is awake and alert in no acute distress. He is breathing better today as compared to yesterday. Not quite back to his baseline but improved. He is able to tolerate a little bit more activity. Able to carry on longer sentences. He is maintaining good O2 saturations in the upper 90s on 4 L/m per nasal cannula. Objective - Vital Signs Vital signs: Vital Signs Temp 97.2 F L 07/11/16 07:00 Pulse 76 07/11/16 12:09 Resp 18 07/11/16 08:00 BP 160/76 07/11/16 07:00 Pulse Ox 97 07/11/16 08:37 Intake & Output 07/10/16 07/11/16 07/11/16 18:59 06:59 18:59 Intake Total 670 Output Total 800 450 Balance -130 -450 Weight 76.204 kg Intake: IV 50 cefTRIAXone 1,000 mg In 50 Sodium Chloride 0.9% 50 ml @ 100 mls/hr IVPB Q24HR [facility] Rx#:[id number] Oral 620 Output: Urine 800 450 Other: Voiding Method Urinal Urinal # Voids 1 1 # Bowel Movements 1 - Exam The patient appeared well nourished and normally developed. Vital signs as documented. Head exam is unremarkable. No scleral icterus or corneal arcus noted. Neck is without jugular venous distension, thyromegaly, or carotid bruits. Carotid upstrokes are brisk bilaterally. Lung sounds are markedly diminished in the lungs throughout and the patient is prolongation of expiratory phase of breathing and scattered rhonchi heard throughout the lung stafford.. Cardiac exam reveals the PMI to be normally sized and situated. Rhythm is regular. First and second heart sounds normal. No murmurs, rubs or gallops. Abdominal exam reveals normal bowel sounds, no masses, no organomegaly and no aortic enlargement. Extremities are nonedematous and both femoral and pedal pulses are normal. 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 5 generalized anxiety disorder 6 renal failure, likely Bactrim induced with a possible chronic renal failure Plan: The patient was seen and evaluated by Dr. Vizcarra. He is cleared for discharge to an extended care facility where he can continue with 24-hour care. He'll be seen in our office in 1-[address] Trevizo at the [facility]. He'll complete his course of antibiotics and prednisone taper. He is encouraged to call sooner with any recurrence of symptoms or any other questions or concerns.
--- NOTE | 2016-07-11 14:10 | DS ---
DATE OF ADMISSION: 07/04/2016 DATE OF DISCHARGE: Patient is an 81-year-old gentleman who was admitted secondary to COPD exacerbation. Patient was discharged yesterday because of some social encasement issues. Patient was not discharged to subacute rehabilitation. Patient will be discharged today. Please refer to my nurse practitioner's dictation from yesterday for further details of discharge. Consider the discharge summary as a progress note. This patient ended up staying here. I saw and evaluated the patient and patient's respiratory status. Vitals are stable. RESPIRATORY: Significantly limited air entry into bilateral lung stafford. No wheezing was appreciate and his respiratory status is at his baseline. Patient says he actually improved compared to yesterday. Kidney function did improve as well. Patient may need 3 L of oxygen at rest and 4 L when ambulation. Extensively discussed with the patient about his overall prognosis. Spent greater than 35 minutes in total discharge process even today.
[2016-07-11 16:02] VITALS: BMI 25.5
[2016-07-11 17:14] LABS: Glucose,Whole Blood 109 mg/dL (75-99)
[2016-07-11] MEDS: SENNOSIDES 8.6 MG TAB PO SCH (20:56)
[2016-07-11 21:14] LABS: Glucose,Whole Blood 140 mg/dL (75-99)
[2016-07-11] MEDS: traZODone HCL 50 MG TAB PO SCH (23:02)
[2016-07-12] MEDS: IPRATROPIUM-ALBUTEROL 3 ML NEB INHALATION PRN (02:15)
[2016-07-12] MEDS: LEVOTHYROXINE 50 MCG TAB PO SCH (06:56)
[2016-07-12] MEDS: methylPREDNISolone SOD SUCCI 125 MG/2 ML VIAL IV SCH ×2 (06:56→11:35)
[2016-07-12 07:25] LABS: Glucose,Whole Blood 110 mg/dL (75-99)
[2016-07-12] MEDS: INSULIN LISPRO (humaLOG) 300 UNIT/3 ML VIAL SQ SCH ×4 (07:58→21:50)
[2016-07-12] MEDS: SYMBICORT 160-4.5 MCG INHALER INHALATION SCH ×2 (08:04→20:59)
[2016-07-12] MEDS: IPRATROPIUM-ALBUTEROL 3 ML NEB INHALATION SCH ×4 (08:04→19:32)
[2016-07-12] MEDS: AZITHROMYCIN 500 MG TAB PO SCH (09:43)
[2016-07-12] MEDS: PROPRANOLOL 20 MG TAB PO SCH ×2 (09:43→20:39)
[2016-07-12] MEDS: DOCUSATE 100 MG CAP PO SCH (09:43)
[2016-07-12] MEDS: TAMSULOSIN 0.4 MG CAP.ER.24H PO SCH (09:43)
[2016-07-12] MEDS: guaiFENesin 600 MG TABLET.ER PO SCH ×2 (09:44→20:39)
[2016-07-12] MEDS: ALPRAZolam 0.25 MG TAB PO SCH ×4 (09:44→21:49)
[2016-07-12] MEDS: FAMOTIDINE 20 MG TAB PO SCH (09:44)
[2016-07-12] MEDS: NYSTATIN 100,000 UNIT/ML SUSP 500,000 UNIT/5 ML CUP PO SCH ×4 (09:44→21:50)
[2016-07-12] MEDS: FLUoxetine HCL 20 MG CAP PO SCH (09:44)
[2016-07-12] MEDS: GABAPENTIN 400 MG CAP PO SCH ×3 (09:44→21:50)
[2016-07-12] MEDS: CHOLECALCIFEROL 1,000 UNIT TAB PO SCH (09:44)
[2016-07-12] MEDS: HEPARIN SODIUM,PORCINE 5,000 UNIT/ML 1 ML VIAL SQ SCH ×2 (09:53→20:38)
[2016-07-12] MEDS: HYDROcodone/APAP 5-325MG 1 EACH TAB PO PRN (09:54)
[2016-07-12] MEDS: BISACODYL 10 MG SUPP RECTAL SCH (09:55)
[2016-07-12 11:27] LABS: Basophils # (A) 0.1 k/uL (0-0.2); Basophils % (A) 0 %; CH 30.2; CHCM 30.2; Eosinophils % (A) 0 %; HCT 37.8 % (39.0-53.0); HDW 2.21; HGB 11.6 gm/dL (13.0-17.5); Hypochromasia Moderate; Luc # (Auto) 0.15; Luc % (Auto) 1; Lymphocytes # (A) 0.5 k/uL (1.0-4.8); Lymphocytes % (A) 3 %; MCH 30.8 pg (25.0-35.0); MCHC 30.7 g/dL (31.0-37.0); MCV 100.6 fL (80.0-100.0); Mean Platelet Volume 7.5; Monocytes # (A) 0.8 k/uL (0-1.0); Monocytes % (A) 4 %; Neutrophils # (A) 17.2 k/uL (1.3-7.7); Neutrophils % (A) 92 %; RBC 3.76 m/uL (4.30-5.90); RDW 12.4 % (11.5-15.5); WBC 18.7 k/uL (3.8-10.6); WBC (Perox) 19.08
[2016-07-12] MEDS: MULTIVITAMINS, THERA 1 EACH TAB PO SCH (11:35)
[2016-07-12 11:45] LABS: Anion Gap 4 mmol/L; Blood Urea Nitrogen 36 mg/dL (9-20); Calcium 8.6 mg/dL (8.4-10.2); Carbon Dioxide 37 mmol/L (22-30); Chloride 95 mmol/L (98-107); Glucose 103 mg/dL (74-99); Non-African American GFR(MDRD) >60 (>60 ml/min/1.73 sqM); Potassium 4.7 mmol/L (3.5-5.1); Sodium 136 mmol/L (137-145)
[2016-07-12] MEDS: ACETAMINOPHEN TAB 325 MG TAB PO PRN (12:18)
[2016-07-12 12:49] LABS: Glucose,Whole Blood 122 mg/dL (75-99)
--- NOTE | 2016-07-12 14:22 | P.PN ---
Subjective Principal diagnosis: COPD exacerbation 81-year-old male patient with advanced COPD was coming in for an acute COPD exacerbation. The patient had undergone a CAT scan of the chest at [facility] and it shows a masslike consolidation in the right midlung area is probably an area of infiltrate than a true tumor. In any rate, the patient advanced lung disease and he will not be a candidate for any further diagnostic or therapeutic measures even if diagnosis of cancer was established. The patient is in for an acute COPD exacerbation. He is a congested cough and he is unable to bring up much of sputum. No chills. No fever. He reports only minimal amount of improvement over the past 24 hours and is less short of breath compared to yesterday. He is an ex-smoker and he quit smoking approximately 4 years ago. The patient is seen again today 07/08/2016 in follow-up on the regular medical floor. He is still slow to progress. Not significantly better today as compared to yesterday but states he is better overall. He is able to carry on more sentences without significant shortness of breath. He is still requiring 5 L/m per nasal cannula to maintain O2 saturations in the 90s. He specifically afebrile. He is still quite bronchospastic and wheezy. The patient was seen again today in follow-up on 07/09/2016 on the regular medical floor. He is awake and alert in no acute distress. He is still somewhat bronchospastic and wheezing with activity. He is tolerating a little more activity today as compared to yesterday. The patient is seen and evaluated again today 07/10/2016 on the regular medical floor. He is awake and alert in no acute distress. He is breathing easier today as compared to yesterday. Nearly back to his baseline. He is maintaining O2 saturations in the mid 90s on 5 L/m per nasal cannula. The patient is seen again today 07/11/2016 in follow-up on the regular medical floor. He is currently sitting up in bed having lunch. He is awake and alert in no acute distress. He is breathing better today as compared to yesterday. Not quite back to his baseline but improved. He is able to tolerate a little bit more activity. Able to carry on longer sentences. He is maintaining good O2 saturations in the upper 90s on 4 L/m per nasal cannula. The patient is seen again today 07/12/2016 on the regular medical floor. He is currently up in the chair at the bedside. He is awake and alert in no acute distress. He was not accepted into the swing bed unit and is now planning to go to [facility]. He states he is breathing better today as compared to yesterday. He is more active as well. He is nearly back to his baseline. Objective - Vital Signs Vital signs: Vital Signs Temp 98.1 F 07/12/16 07:00 Pulse 84 07/12/16 12:26 Resp 16 07/12/16 07:00 BP 147/60 07/12/16 07:00 Pulse Ox 96 07/12/16 07:00 Intake & Output 07/11/16 07/12/16 07/12/16 18:59 06:59 18:59 Intake Total 50 480 Output Total 2350 900 Balance 50 -2350 -420 Weight 76.204 kg Intake: IV 50 cefTRIAXone 1,000 mg In 50 Sodium Chloride 0.9% 50 ml @ 100 mls/hr IVPB Q24HR [facility] Rx#:[id number] Oral 480 Output: Urine 2350 900 Other: Voiding Method Urinal Urinal # Voids 2 1 1 # Bowel Movements 1 - Exam The patient appeared well nourished and normally developed. Vital signs as documented. Head exam is unremarkable. No scleral icterus or corneal arcus noted. Neck is without jugular venous distension, thyromegaly, or carotid bruits. Carotid upstrokes are brisk bilaterally. Lung sounds are markedly diminished in the lungs throughout and the patient is prolongation of expiratory phase of breathing and scattered rhonchi heard throughout the lung stafford.. Cardiac exam reveals the PMI to be normally sized and situated. Rhythm is regular. First and second heart sounds normal. No murmurs, rubs or gallops. Abdominal exam reveals normal bowel sounds, no masses, no organomegaly and no aortic enlargement. Extremities are nonedematous and both femoral and pedal pulses are normal. - Labs CBC & Chem 7: 07/12/16 11:05 07/12/16 11:05 Labs: Abnormal Lab Results - Last 24 Hours (Table) 07/11/16 07/11/16 07/12/16 Range/Units 16:56 21:08 07:08 WBC (3.8-10.6) k/uL RBC (4.30-5.90) m/uL Hgb (13.0-17.5) gm/dL Hct (39.0-53.0) % MCV (80.0-100.0) fL MCHC (31.0-37.0) g/dL Neutrophils # (1.3-7.7) k/uL Lymphocytes # (1.0-4.8) k/uL Sodium (137-145) mmol/L Chloride (98-107) mmol/L Carbon Dioxide (22-30) mmol/L BUN (9-20) mg/dL Glucose (74-99) mg/dL POC Glucose (mg/dL) 109 H 140 H 110 H (75-99) mg/dL 07/12/16 07/12/16 07/12/16 Range/Units 11:05 11:05 12:17 WBC 18.7 H (3.8-10.6) k/uL RBC 3.76 L (4.30-5.90) m/uL Hgb 11.6 L (13.0-17.5) gm/dL Hct 37.8 L (39.0-53.0) % MCV 100.6 H (80.0-100.0) fL MCHC 30.7 L (31.0-37.0) g/dL Neutrophils # 17.2 H (1.3-7.7) k/uL Lymphocytes # 0.5 L (1.0-4.8) k/uL Sodium 136 L (137-145) mmol/L Chloride 95 L (98-107) mmol/L Carbon Dioxide 37 H (22-30) mmol/L BUN 36 H (9-20) mg/dL Glucose 103 H (74-99) mg/dL POC Glucose (mg/dL) 122 H (75-99) mg/dL Assessment and Plan Plan: Assessment: 1 acute COPD exacerbation, with secondary shortness of breath 2 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 5 generalized anxiety disorder 6 renal failure, likely Bactrim induced with a possible chronic renal failure Plan: The patient was seen and evaluated by Dr. Vizcarra. He is again cleared for discharge to an extended care facility where he can continue with 24-hour care. While here we will continue with his current medications including bronchodilators, Symbicort, Solu-Medrol taper. He'll be seen in our office in 1 -[address] Trevizo at the [facility]. He'll complete his course of antibiotics and prednisone taper. He is encouraged to call sooner with any recurrence of symptoms or any other questions or concerns.
[2016-07-12] MEDS ORDERED: FUROSEMIDE 10 MG/ML 4 ML VIAL IV STA (15:43)
[2016-07-12] MEDS: methylPREDNISolone SOD SUCCI 40 MG/ML 1 ML VIAL IV SCH (15:48)
[2016-07-12 17:01] LABS: Glucose,Whole Blood 132 mg/dL (75-99)
--- NOTE | 2016-07-12 19:21 | PN ---
DATE OF SERVICE: 07/12/2016 INTERVAL HISTORY: Mr. Shipman is an 81-year-old male with advanced chronic obstructive pulmonary disease, admitted to the hospital for shortness of breath. He is currently being treated for acute COPD exacerbation. Patient did have a CT of his chest and neck in ( ) Hospital showing a masslike consolidation in the right middle lung area, which is probably an area of infiltration than a true tumor. In any case, the patient has advanced lung disease and he will not be candidate for any further diagnostic or therapeutic measures even if the diagnosis of cancer is established. He is currently being treated with steroids breathing treatments and antibiotics. The patient is showing improvement in his respiratory status and he was cleared to be discharged but currently waiting for a bed in extended-care facility. Today the patient appears to be in no acute distress, sitting comfortably in his bed. REVIEW OF SYSTEMS: CONSTITUTIONAL: Denies having fevers, chills, or rigors. RESPIRATORY: Baseline difficulty in breathing even with mild exertion. CARDIAC: No chest pain or palpitations. GI: No nausea, no vomiting, or diarrhea. : No dysuria or hematuria. The patient's medications have been reviewed. On examination, patient's vital signs, temperature is 98.3, heart rate 75, respiratory rate 16, blood pressure 134/72, saturating at 98% on 5 liters of nasal cannula. The patient is comfortably, sitting up in his bed, appears to be no acute distress. HEAD: Atraumatic, normocephalic. EYES: Pupils round and reactive to light. NECK: No JVD. No thyromegaly. CARDIOVASCULAR: S1, S2 heard. LUNGS: Diminished breath sounds in all lung stafford. No active wheezes, no rhonchi. ABDOMEN: Soft, nontender. Bowel sounds positive. EXTREMITIES: Bilateral pitting edema up to the ankle. No cyanosis, no clubbing. Peripheral pulses are felt. WHISKEY FILTERER: Alert and awake, oriented x3. No focal neurological deficits. PSYCHIATRIC: Appropriate mood and affect. SKIN: No rashes. Patient's labs: White count of 18.1, hemoglobin 11.6, platelets of 224. Sodium 136, potassium 4.7, chloride 95, bicarb 37, BUN 4, creatinine 1.06. ASSESSMENT AND PLAN: 1. Acute chronic obstructive pulmonary disease exacerbation. 2. Acute on chronic hypoxic and hypercapnic respiratory failure. 3. Advanced chronic obstructive pulmonary disease with diffuse emphysematous changes bilaterally as evident on a CT scan of the chest. 4. Right midlung opacity likely inflammatory/infectious patch other than malignancy. 5. Generalized anxiety disorder. 6. Chronic renal failure, most likely secondary to Bactrim. Creatinine has been stable around 1. PLAN: The plan is to continue the patient on steroids, breathing treatments and antibiotics. Currently he is being cleared by Pulmonary, but we are waiting for placement. At the time of discharge he will be discharged on prednisone taper and antibiotics. Further recommendations to follow depending on the progress of the patient. DAVEY
[2016-07-12] MEDS: SENNOSIDES 8.6 MG TAB PO SCH (20:39)
[2016-07-12 21:03] LABS: Glucose,Whole Blood 153 mg/dL (75-99)
[2016-07-12] MEDS: traZODone HCL 50 MG TAB PO SCH (21:50)
[2016-07-13] MEDS: methylPREDNISolone SOD SUCCI 40 MG/ML 1 ML VIAL IV SCH ×3 (00:28→15:40)
[2016-07-13] MEDS: IPRATROPIUM-ALBUTEROL 3 ML NEB INHALATION PRN (03:14)
[2016-07-13] MEDS: LEVOTHYROXINE 50 MCG TAB PO SCH (06:35)
[2016-07-13] MEDS: IPRATROPIUM-ALBUTEROL 3 ML NEB INHALATION SCH ×4 (07:10→20:47)
[2016-07-13] MEDS: SYMBICORT 160-4.5 MCG INHALER INHALATION SCH ×2 (07:10→20:47)
[2016-07-13 07:44] LABS: Glucose,Whole Blood 109 mg/dL (75-99)
[2016-07-13] MEDS: INSULIN LISPRO (humaLOG) 300 UNIT/3 ML VIAL SQ SCH ×3 (08:35→17:50)
[2016-07-13] MEDS: FLUTICASONE 50MCG/SPRAY NASAL 16GM INTRANASAL PRN (09:08)
[2016-07-13] MEDS: NYSTATIN 100,000 UNIT/ML SUSP 500,000 UNIT/5 ML CUP PO SCH ×4 (09:09→20:26)
[2016-07-13] MEDS: guaiFENesin 600 MG TABLET.ER PO SCH ×2 (09:09→20:27)
[2016-07-13] MEDS: PROPRANOLOL 20 MG TAB PO SCH ×2 (09:09→20:27)
[2016-07-13] MEDS: CHOLECALCIFEROL 1,000 UNIT TAB PO SCH (09:10)
[2016-07-13] MEDS: BISACODYL 10 MG SUPP RECTAL SCH (09:10)
[2016-07-13] MEDS: HYDROcodone/APAP 5-325MG 1 EACH TAB PO PRN (09:10)
[2016-07-13] MEDS: ALPRAZolam 0.25 MG TAB PO SCH ×4 (09:10→20:26)
[2016-07-13] MEDS: HEPARIN SODIUM,PORCINE 5,000 UNIT/ML 1 ML VIAL SQ SCH ×2 (09:10→20:27)
[2016-07-13] MEDS: AZITHROMYCIN 500 MG TAB PO SCH (09:11)
[2016-07-13] MEDS: DOCUSATE 100 MG CAP PO SCH (09:11)
[2016-07-13] MEDS: FLUoxetine HCL 20 MG CAP PO SCH (09:11)
[2016-07-13] MEDS: FUROSEMIDE 40 MG TAB PO SCH (09:11)
[2016-07-13] MEDS: TAMSULOSIN 0.4 MG CAP.ER.24H PO SCH (09:12)
[2016-07-13] MEDS: FAMOTIDINE 20 MG TAB PO SCH (09:12)
[2016-07-13] MEDS: GABAPENTIN 400 MG CAP PO SCH ×3 (09:12→20:26)
[2016-07-13] MEDS ORDERED: BISACODYL 10 MG SUPP RECTAL PRN (09:24)
[2016-07-13] MEDS: ACETAMINOPHEN TAB 325 MG TAB PO PRN (12:13)
[2016-07-13] MEDS: MULTIVITAMINS, THERA 1 EACH TAB PO SCH (12:13)
[2016-07-13 12:47] LABS: Glucose,Whole Blood 128 mg/dL (75-99)
--- NOTE | 2016-07-13 14:42 | P.PN ---
Subjective 81-year-old male patient with advanced COPD was coming in for an acute COPD exacerbation. The patient had undergone a CAT scan of the chest at [facility] and it shows a masslike consolidation in the right midlung area is probably an area of infiltrate than a true tumor. In any rate, the patient advanced lung disease and he will not be a candidate for any further diagnostic or therapeutic measures even if diagnosis of cancer was established. The patient is in for an acute COPD exacerbation. He is a congested cough and he is unable to bring up much of sputum. No chills. No fever. He reports only minimal amount of improvement over the past 24 hours and is less short of breath compared to yesterday. He is an ex-smoker and he quit smoking approximately 4 years ago. The patient is seen again today 07/08/2016 in follow-up on the regular medical floor. He is still slow to progress. Not significantly better today as compared to yesterday but states he is better overall. He is able to carry on more sentences without significant shortness of breath. He is still requiring 5 L/m per nasal cannula to maintain O2 saturations in the 90s. He specifically afebrile. He is still quite bronchospastic and wheezy. The patient was seen again today in follow-up on 07/09/2016 on the regular medical floor. He is awake and alert in no acute distress. He is still somewhat bronchospastic and wheezing with activity. He is tolerating a little more activity today as compared to yesterday. The patient is seen and evaluated again today 07/10/2016 on the regular medical floor. He is awake and alert in no acute distress. He is breathing easier today as compared to yesterday. Nearly back to his baseline. He is maintaining O2 saturations in the mid 90s on 5 L/m per nasal cannula. The patient is seen again today 07/11/2016 in follow-up on the regular medical floor. He is currently sitting up in bed having lunch. He is awake and alert in no acute distress. He is breathing better today as compared to yesterday. Not quite back to his baseline but improved. He is able to tolerate a little bit more activity. Able to carry on longer sentences. He is maintaining good O2 saturations in the upper 90s on 4 L/m per nasal cannula. The patient is seen again today 07/12/2016 on the regular medical floor. He is currently up in the chair at the bedside. He is awake and alert in no acute distress. He was not accepted into the swing bed unit and is now planning to go to [facility]. He states he is breathing better today as compared to yesterday. He is more active as well. He is nearly back to his baseline. On 07/13/2016 the patient has no complaints. Improving per less short of breath. Looking forward to go to [facility]. No fever. No chills. Tolerating diet. Selection dependent. No swelling lower extremities. Urinating. Having regular bowel movements. Objective - Vital Signs Vital signs: Vital Signs Temp 97.6 F 07/13/16 07:00 Pulse 76 07/13/16 11:40 Resp 16 07/13/16 07:00 BP 148/68 07/13/16 07:00 Pulse Ox 98 07/13/16 07:00 Intake & Output 07/12/16 07/13/16 07/13/16 18:59 06:59 18:59 Intake Total 890 200 Output Total 3125 1575 1200 Balance -2235 -1575 -1000 Weight 76.204 kg Intake: IV 50 cefTRIAXone 1,000 mg In 50 Sodium Chloride 0.9% 50 ml @ 100 mls/hr IVPB Q24HR [facility] Rx#:[id number] Oral 840 200 Output: Urine 3125 1575 1200 Other: Voiding Method Urinal # Voids 1 # Bowel Movements 1 - Exam The patient appeared well nourished and normally developed. Vital signs as documented. Head exam is unremarkable. No scleral icterus or corneal arcus noted. Neck is without jugular venous distension, thyromegaly, or carotid bruits. Carotid upstrokes are brisk bilaterally. Lung sounds are markedly diminished in the lungs throughout and the patient is prolongation of expiratory phase of breathing and scattered rhonchi heard throughout the lung stafford.. Cardiac exam reveals the PMI to be normally sized and situated. Rhythm is regular. First and second heart sounds normal. No murmurs, rubs or gallops. Abdominal exam reveals normal bowel sounds, no masses, no organomegaly and no aortic enlargement. Extremities are nonedematous and both femoral and pedal pulses are normal. 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 5 generalized anxiety disorder 6 renal failure, likely Bactrim induced with a possible chronic renal failure Plan The patient is still being treated. The patient on bronchodilators steroids and antibiotics. We'll change the patient to a prednisone burst taper the time of discharge. Continue oxygen therapy. We'll need ECF and rehabilitation. Follow-up with the pulmonary clinic in [place] in regards to his COPD.
[2016-07-13 17:18] LABS: Glucose,Whole Blood 123 mg/dL (75-99)
--- NOTE | 2016-07-13 20:13 | PN ---
DATE OF SERVICE: 07/13/2016. INTERVAL HISTORY: Mr. Shipman is an 81-year-old male with advanced chronic obstructive pulmonary disease admitted to the hospital for shortness of breath. He is being treated for acute COPD exacerbation. He is on steroids, breathing treatments and antibiotics. Patient did show improvement in his respiratory status is cleared to be discharged but waiting for her bed in extended care facility. Today the patient appears to be no acute distress, sitting comfortably in bed. REVIEW OF SYSTEMS: CONSTITUTIONAL: Denies having fever, chills, or rigors. RESPIRATORY: Difficulty in breathing even with mild exertion. CARDIAC: No chest pain. No palpitations. GI: No abdominal pain, nausea, vomiting, or diarrhea. : No dysuria. No hematuria. Patient's medications have been reviewed. On examination, patient's vital signs temperature 98.7, heart rate 71, respiratory rate 22, blood pressure 126/63, saturating at 97% on 3 liters of nasal cannula. GENERAL: Patient appears to be no acute distress. HEAD: Atraumatic. Normocephalic. EYES: Pupils round and reactive to light. NECK: No JVD. No thyromegaly. CARDIOVASCULAR: S1, S2 heard. LUNGS: Diminished breath sounds in all lung stafford. No active wheezes or no rhonchi. ABDOMEN: Soft, nontender. Bowel sounds positive. EXTREMITIES: Positive for pitting edema bilaterally up to the ankle. No cyanosis, no clubbing. CENTRAL NERVOUS SYSTEM: Awake, alert and oriented x3. No focal neurological deficits. PSYCHIATRIC: Appropriate mood and affect. SKIN: No rash. The patient's labs: No new labs from today. ASSESSMENT AND PLAN: 1. Acute exacerbation of chronic obstructive pulmonary disease due to acute bronchitis. 2. Acute on chronic hypoxic and hypercapnic respiratory failure. 3. Advanced chronic obstructive pulmonary disease with diffuse emphysematous changes bilaterally is evidence on a CT scan of the chest. 4. Right mid lung opacity, likely inflammatory/infectious patch other than malignancy. 5. Generalized anxiety disorder. 6. Chronic renal failure, most likely secondary to Bactrim in the past, creatinine has been stable. PLAN: The plan is to continue the patient on steroids, breathing treatments and antibiotics. Currently waiting for placement. At the time of discharge he will be discharged on prednisone burst taper and antibiotics. Further recommendations to follow depending on the progress of the patient.
[2016-07-13] MEDS: SENNOSIDES 8.6 MG TAB PO SCH (20:26)
[2016-07-13] MEDS: traZODone HCL 50 MG TAB PO SCH (20:26)
[2016-07-13 21:37] LABS: Glucose,Whole Blood 207 mg/dL (75-99)
[2016-07-14 00:33] LABS: Glucose,Whole Blood 156 mg/dL (75-99)
[2016-07-14] MEDS: INSULIN LISPRO (humaLOG) 300 UNIT/3 ML VIAL SQ SCH ×2 (00:35→07:54)
[2016-07-14] MEDS: methylPREDNISolone SOD SUCCI 40 MG/ML 1 ML VIAL IV SCH ×2 (00:35→08:44)
[2016-07-14] MEDS: IPRATROPIUM-ALBUTEROL 3 ML NEB INHALATION PRN ×2 (01:09→05:39)
[2016-07-14] MEDS: LEVOTHYROXINE 50 MCG TAB PO SCH (06:55)
[2016-07-14 07:56] VITALS: BP 176/72; PULSE 76; RESP 20; TEMP 96.8
[2016-07-14 08:06] LABS: Glucose,Whole Blood 118 mg/dL (75-99)
[2016-07-14] MEDS: CHOLECALCIFEROL 1,000 UNIT TAB PO SCH (08:45)
[2016-07-14] MEDS: ALPRAZolam 0.25 MG TAB PO SCH (08:45)
[2016-07-14] MEDS: AZITHROMYCIN 500 MG TAB PO SCH (08:45)
[2016-07-14] MEDS: DOCUSATE 100 MG CAP PO SCH (08:46)
[2016-07-14] MEDS: FLUoxetine HCL 20 MG CAP PO SCH (08:46)
[2016-07-14] MEDS: FAMOTIDINE 20 MG TAB PO SCH (08:46)
[2016-07-14] MEDS: NYSTATIN 100,000 UNIT/ML SUSP 500,000 UNIT/5 ML CUP PO SCH (08:47)
[2016-07-14] MEDS: GABAPENTIN 400 MG CAP PO SCH (08:47)
[2016-07-14] MEDS: HEPARIN SODIUM,PORCINE 5,000 UNIT/ML 1 ML VIAL SQ SCH (08:47)
[2016-07-14] MEDS: guaiFENesin 600 MG TABLET.ER PO SCH (08:47)
[2016-07-14] MEDS: FUROSEMIDE 40 MG TAB PO SCH (08:47)
[2016-07-14] MEDS: PROPRANOLOL 20 MG TAB PO SCH (08:48)
[2016-07-14] MEDS: TAMSULOSIN 0.4 MG CAP.ER.24H PO SCH (08:48)
[2016-07-14] MEDS: ACETAMINOPHEN TAB 325 MG TAB PO PRN (08:50)
[2016-07-14] MEDS: SYMBICORT 160-4.5 MCG INHALER INHALATION SCH (08:52)
[2016-07-14] MEDS: IPRATROPIUM-ALBUTEROL 3 ML NEB INHALATION SCH (08:52)
[2016-07-14 09:17] LABS: Anion Gap 4 mmol/L; Blood Urea Nitrogen 40 mg/dL (9-20); Calcium 8.4 mg/dL (8.4-10.2); Carbon Dioxide 37 mmol/L (22-30); Chloride 94 mmol/L (98-107); Glucose 98 mg/dL (74-99); Non-African American GFR(MDRD) >60 (>60 ml/min/1.73 sqM); Potassium 4.6 mmol/L (3.5-5.1); Sodium 135 mmol/L (137-145)
[2016-07-14 09:36] LABS: Basophils % (A) 0 %; CH 29.9; CHCM 30.2; Eosinophils % (A) 0 %; HCT 35.9 % (39.0-53.0); HDW 2.16; HGB 10.7 gm/dL (13.0-17.5); Hypochromasia Moderate; Luc # (Auto) 0.12; Luc % (Auto) 1; Lymphocytes # (A) 0.5 k/uL (1.0-4.8); Lymphocytes % (A) 3 %; MCH 29.8 pg (25.0-35.0); MCHC 29.9 g/dL (31.0-37.0); MCV 99.6 fL (80.0-100.0); Mean Platelet Volume 7.9; Monocytes # (A) 0.5 k/uL (0-1.0); Monocytes % (A) 3 %; Neutrophils # (A) 15.5 k/uL (1.3-7.7); Neutrophils % (A) 93 %; RBC 3.61 m/uL (4.30-5.90); RDW 12.2 % (11.5-15.5); WBC 16.7 k/uL (3.8-10.6); WBC (Perox) 17.95
--- NOTE | 2016-07-15 20:21 | DS ---
DATE OF ADMISSION: 07/04/2016 DATE OF DISCHARGE: 07/14/2016 FINAL DIAGNOSES: 1. Chronic obstructive pulmonary disease exacerbation with acute purulent tracheobronchitis or bronchopneumonia with acute on chronic hypoxic respiratory failure present on admission. 2. Right mid lung mass in a CAT scan done at [facility] possible malignancy, but the most recent CT scan showed right with a nodular component, possible post inflammatory for follow-up. 3. Gastroesophageal reflux disease. 4. Hypertension. 5. Hypothyroidism. 6. History of degenerative joint disease. 7. History of chronic constipation. 8. Anxiety, depression, not otherwise specified. 9. Remote history of nicotine dependence. 10. Acute renal failure, possibly antibiotic induced, improved. 11. FULL CODE. DISCHARGE DISPOSITION: The patient will be transferred to [facility] in stable condition with guarded prognosis. Total time taken is 35 minutes. HISTORY OF PRESENT ILLNESS: This 81-year-old gentleman with a past medical history of multiple medical problems was admitted with acute COPD exacerbation with shortness of breath. The patient was treated with antibiotics. The patient had multiple complications as mentioned earlier. The patient improved significantly. On exam vitals are stable. CARDIOVASCULAR: S1, S2 muffled. RESPIRATORY: A few scattered rhonchi and crackles. CENTRAL NERVOUS SYSTEM: No focal deficits. CT findings as above. The patient has got significant medical issues. Seen by Dr. Vizcarra and Dr. Wells and recommended close outpatient follow-up regarding the abnormal CT scan. DISCHARGE ADVICE AND MEDICATIONS: 1. Diet is cardiac. 2. Follow up with Dr. Cheng Lagos in [facility]. 3. Follow-up with Dr. Ng after discharge from [facility]. 4. Follow-up with Dr. Vizcarra as advised. 5. Medications are Tylenol 650 q.4 p.r.n. 6. Dulcolax 10 mg daily p.r.n. 7. Symbicort 160/4.5, 2 puffs b.i.d. 8. Ceftin 500 mg p.o. b.i.d. for 5 days. 9. Vitamin D3 2000 daily. 10. Colace 200 mg p.o. daily. 11. Prozac 20 mg p.o. daily. 12. Flonase one spray daily. 13. Neurontin 400 mg p.o. t.i.d. 14. Mucinex 1 tablet p.o. b.i.d. 15. [place] 5 mg t.i.d. p.r.n. 16. Albuterol Atrovent updrafts q.i.d. and p.r.n. 17. Synthroid 50 mcg p.o. daily. 18. Levothyroxine 50 mcg p.o. daily. 19. Multivitamins one p.o. daily. 20. Inderal 20 mg p.o. daily. 21. Zantac 150 mg p.o. b.i.d. 22. Senokot 8.6 b.i.d. 23. Flomax 0.4 daily. 24. Trazodone 50 p.o. q.h.s. Once again, the patient is being discharged in stable condition with guarded prognosis. [facility]
== END 2016-07-14 11:22 | DRG 190 ==
LOC: EC 22:46 → 4MS4W 23:34
PROVIDERS: ADMIT Hospitalist; ATTEND Hospitalist
DX: J44.0 Chronic obstructive pulmonary disease with (acute) lower respiratory infection (principal); J18.0 Bronchopneumonia, unspecified organism; J96.21 Acute and chronic respiratory failure with hypoxia; J96.22 Acute and chronic respiratory failure with hypercapnia; N17.9 Acute kidney failure, unspecified; J20.9 Acute bronchitis, unspecified; J44.1 Chronic obstructive pulmonary disease with (acute) exacerbation; E03.9 Hypothyroidism, unspecified; F32.9 Major depressive disorder, single episode, unspecified; F41.1 Generalized anxiety disorder; G89.29 Other chronic pain; K21.9 Gastro-esophageal reflux disease without esophagitis; K59.09 Other constipation; T37.0X5A Adverse effect of sulfonamides, initial encounter; I10 Essential (primary) hypertension; M47.9 Spondylosis, unspecified; R73.9 Hyperglycemia, unspecified; Z79.899 Other long term (current) drug therapy; Z88.1 Allergy status to other antibiotic agents; Z87.891 Personal history of nicotine dependence; Z99.81 Dependence on supplemental oxygen
CPT/HCPCS: 71020; 71250; 80048; 80053; 83036; 85025; 94640; 94760; 99285